=== PATIENT | female | born 1975 | race Caucasian/White ===

== ENCOUNTER 2016-08-09 17:36 | Emergency (ER) | payer OTHER, MEDICARE ==
[~2016-08-09 17:36] MED LIST: KLONOPIN0.5 M1 PO; SERTRALINE HCL50 MG PO; ZOLOFT25 M1 PO
[2016-08-09] MEDS ORDERED: OLANZAPINE5 M2 PO (17:47)
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
[2016-08-09 18:41] VITALS: BP 120/75
[2016-08-09 18:56] LABS: ABSOLUTE BASOPHIL COUNT 0 /CUMM (0.0-0.2); ABSOLUTE EOSINOPHIL COUNT 0.1 /CUMM (0.0-0.7); ABSOLUTE GRANULOCYTE CT 5.1 /CUMM (1.4-6.5); ABSOLUTE MONOCYTE COUNT 0.5 /CUMM (0.10-0.60); BASOPHIL % 0.3 % (0.0-2.0); EOSINOPHIL % 1.4 % (0-5); GRANULOCYTE % 65.3 % (42.2-75.2); HEMATOCRIT 35.9 % (37-47); MEAN CORPUSCULAR HGB 30.5 PG (27.0-31.0); MEAN CORPUSCULAR VOLUME 89.9 FL (81.0-99.0); MEAN PLATELET VOLUME 8.6 FL (7.4-10.4); PLATELET COUNT 292 /CUMM (130-400); RBC DISTRIBUTION WIDTH 13.6 % (11.5-14.5); RED BLOOD CELL CT 3.99 /CUMM (4.20-5.40); WHITE BLOOD CELL COUNT 7.9 /CUMM (4.8-10.8)
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
== END 2016-08-09 20:39 ==
LOC: ERH 17:36
PROVIDERS: Emergency Medicine
DX: F32.9 Major depressive disorder, single episode, unspecified (principal); F41.0 Panic disorder [episodic paroxysmal anxiety]
CPT/HCPCS: 80307; G0463; G0480

== ENCOUNTER 2016-08-13 16:40 | Emergency (ER) | payer OTHER, MEDICARE ==
[~2016-08-13 16:40] MED LIST changes: +OLANZAPINE5 M2 PO
--- NOTE | 2016-08-13 16:49 | ED PSYCHIATRIC COMPLAINT ---
History of Present Illness General Chief Complaint: Psychiatric Related Complaint Stated Complaint: +SI Source: patient, old records, EMS Exam Limitations: no limitations Allergies Coded Allergies: No Known Allergies (10/21/15) Reconcile Medications Clonazepam (Klonopin) 0.5 MG TABLET 1 TAB PO BID ANXIETY (Reported) Olanzapine 5 MG TABLET 1 TAB PO BID MENTAL HEALTH (Reported) Triage Nurses Notes Reviewed? yes Onset: Gradual Duration: week(s): (FEW), worse persistent since (2 DAYS) Timing: recent history Severity: severe Associated Symptoms: anxiety, suicidal ideation HPI: This is a 41-year-old female with history of anxiety who presents to the ER by EMS from the [facility] for chief complaint of anxiety attack. She reported that she was suicidal without a plan. History of previous visits to the ER for overwhelming anxiety. (KADEN JORDAN MD) Vital Signs & Intake/Output Vital Signs & Intake/Output Vital Signs Date Time Temp Pulse Resp B/P Pulse O2 O2 Flow FiO2 Ox Delivery Rate 08/138 98.2 90 16 120/64 98 Room Air 08/13 1712 Room Air 08/13 1654 78 18 111/66 98 Room Air Past History Travel History Traveled to [place] past 21 day No Medical History Any Pertinent Medical History? see below for history Neurological: NONE EENT: NONE Cardiovascular: NONE Respiratory: NONE Gastrointestinal: NONE Hepatic: NONE Renal: NONE Musculoskeletal: NONE Psychiatric: anxiety, depression, PARANOID OCD R/O benzodiazepine use disorder Endocrine: NONE Blood Disorders: NONE Cancer(s): NONE Surgical History Surgical History: non-contributory Psychosocial History Who do you live with Patient/Self What is your primary language Persian Family History Hx Contributory? No (KADEN JORDAN MD) Review of Systems Review of Systems Respiratory: Denies: cough, short of breath. Cardiovascular: Denies: chest pain, palpitations. Neurological/Psychological: Reports: depressed. Hematologic/Endocrine: Denies: bruising, bleeding, polyuria, polydipsia. Immunologic/Allergic: Denies: splenectomy. (KADEN JORDAN MD) Review of Systems Constitutional: Reports: no symptoms. EENTM: Reports: no symptoms. Respiratory: Reports: no symptoms. Cardiovascular: Reports: no symptoms. GI: Reports: no symptoms. Genitourinary: Reports: no symptoms. Musculoskeletal: Reports: no symptoms. Skin: Reports: no symptoms. Neurological/Psychological: Reports: see HPI, anxiety, confusion. Hematologic/Endocrine: Reports: no symptoms. Immunologic/Allergic: Reports: no symptoms. All Other Systems: Reviewed and Negative (LISSETTE WRIGHT MD) Physical Exam Physical Exam General Appearance: awake, anxious, cachetic, thin (KADEN JORDAN MD) Physical Exam General Appearance: well developed/nourished, mild distress Head: atraumatic Eyes: Bilateral: PERRL, EOMI. Ears, Nose, Throat: normal pharynx, normal ENT inspection, hearing grossly normal Neck: normal inspection, supple Respiratory: normal breath sounds Cardiovascular: regular rate/rhythm Gastrointestinal: soft, non-tender Extremities: normal range of motion Neurological/Psychiatric: no motor/sensory deficits, awake, agitated, alert, anxious, rabbet operator II-XII nml as tested Appearance/Memory/Insight: disheveled, impaired insight Behavoir/Eye Contact/Speech: cooperative, increased rate of speech Thoughts/Hallucinations: no apparent hallucination Skin: intact, normal color, warm/dry SAD PERSONS Done? patient not suicidal (LISSETTE WRIGHT MD) Progress Differential Diagnosis: ANXIETY, DEPRESSION, PTSD, BIPOLAR Hand-Off Endorsed To: LISSETTE WRIGHT MD Endorsed Time: 1900 Pending: consult (CRISIS) (KADEN JORDAN MD) Differential Diagnosis: drug intoxication, drug overdose, drug withdrawal, electrolyte abnormality Plan of Care: Orders Procedure Date/time Status Regular Diet 08/14 B Active Continuous Observation Monitor 08/13 164 Active URINE DRUGS OF ABUSE 08/13 1646 Complete URINE 08/13 1646 Complete THYROID STIMULATING HORMONE 08/13 164 Complete FREE T4 08/13 1646 Complete COMPREHENSIVE METABOLIC PANEL 08/13 164 Complete CBC WITHOUT DIFFERENTIAL 08/13 1646 Complete ED CRISIS PSYCH CONSULT 08/13 1647 Active Laboratory Tests 08/13/16 1826: Urine Opiates Screen < 100.00, Methadone Screen < 40, Barbiturate Screen < 60, Ur Phencyclidine Scrn < 6.00, Amphetamines Screen < 100, U Benzodiazepines Scrn > 800 H, Urine Cocaine Screen < 50, Urine Cannabis Screen < 5.00, Urine Test NEGATIVE 08/13/16 1659: Anion Gap 10, Estimated GFR > 60, BUN/Creatinine Ratio 21.7, Glucose 94, Calcium 9.4, Total Bilirubin 0.6, AST 18, ALT 29, Alkaline Phosphatase 55, Total Protein 7.2, Albumin 4.2, Globulin 3.0, Albumin/Globulin Ratio 1.4, TSH 1.330, Free T4 1.43, CBC w Diff NO MAN DIFF REQ, RBC 3.88 L, MCV 90.4, MCH 30.7, RDW 13.6, MPV 8.3, Gran % 47.8, Lymphocytes % 42.9, Monocytes % 7.6, Eosinophils % 1.0, Basophils % 0.7, Absolute Granulocytes 2.8, Absolute Lymphocytes 2.5, Absolute Monocytes 0.4, Absolute Eosinophils 0.1, Absolute Basophils 0, PUBS MCHC 34.0 Comments: Cleared by psychiatry for discharge (LISSETTE WRIGHT MD) Departure Departure Condition: Stable Referrals: PATIENT HAS NO PRIMARY CARE DR (PCP/Family) Departure Forms: Customer Survey General Discharge Information (KADEN JORDAN MD) Departure Time of Disposition: 1958 Disposition: HOME OR SELF CARE Clinical Impression Primary Impression: Anxiety about blushing Additional Instructions: Follow up with the recommendations of the psychiatric nursing aide (LISSETTE WRIGHT MD)
[2016-08-13 17:12] LABS: ABSOLUTE BASOPHIL COUNT 0 /CUMM (0.0-0.2); ABSOLUTE EOSINOPHIL COUNT 0.1 /CUMM (0.0-0.7); ABSOLUTE GRANULOCYTE CT 2.8 /CUMM (1.4-6.5); ABSOLUTE LYMPH COUNT 2.5 /CUMM (1.2-3.4); ABSOLUTE MONOCYTE COUNT 0.4 /CUMM (0.10-0.60); BASOPHIL % 0.7 % (0.0-2.0); GRANULOCYTE % 47.8 % (42.2-75.2); HEMATOCRIT 35.1 % (37-47); MEAN CORPUSCULAR HGB 30.7 PG (27.0-31.0); MEAN CORPUSCULAR VOLUME 90.4 FL (81.0-99.0); MEAN PLATELET VOLUME 8.3 FL (7.4-10.4); PLATELET COUNT 261 /CUMM (130-400); RBC DISTRIBUTION WIDTH 13.6 % (11.5-14.5); RED BLOOD CELL CT 3.88 /CUMM (4.20-5.40); WHITE BLOOD CELL COUNT 5.8 /CUMM (4.8-10.8)
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
--- NOTE | 2016-08-13 19:42 | ED PSY CRISIS COLLATERAL NOTE ---
Collateral Note Collateral Note Family/Inform/Arslan Contacts: Spoke to patients mother, Venecia ([phone]), who was tearful on the phone, was not aware that her daughter was in ED and had just called the police to look for her. Mother reports concern for patient stating that she wants her daughter to get help and does not think she is doing well. I also spoke with patients outpatient therapist, Dr. Giles Spann ([phone]), who reported that patient is "super anxious and super confused" she reports that patient does not report suicidal thoughts so she understands that patient most likely will not be admitted. She expresses concern that patient will keep returning to hospital due to increased anxiety and being unable to manage it on her own.
[2016-08-13 19:58] VITALS: BP 120/64
== END 2016-08-13 20:29 ==
LOC: ERH 16:40
PROVIDERS: Emergency Medicine
DX: F41.9 Anxiety disorder, unspecified (principal)
CPT/HCPCS: 80307; 81025; G0463

== ENCOUNTER 2016-08-15 12:31 | Inpatient (IN) | payer OTHER, MEDICARE ==
[~2016-08-15] VITALS: Ht 165.1 cm; Wt 50.3 kg
--- NOTE | 2016-08-15 12:41 | NUR ---
PT TO LAMBERT MOORE, SECURITY AT BEDSIDE FOR WANDING, SECURITY AND MST ASSISTING PT WITH CHANGING AND SECURING BELONGINGS. PT ALLOWED TO MAKE 1 PHONE CALL TO HER FATHER PRIOR TO WANDING, PT ADVISED THAT FATHER WILL NOT BE ABLE TO VISIT UNLESS PT IS COOPERATING WITH EVALUATION PROCESS. PT DENIES ANY PHYSICAL SYMPTOMS AT THIS TIME.
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
--- NOTE | 2016-08-15 13:08 | NUR ---
PT SCREAMING "I WANT TO ! I DON'T WANT TO , I WANT TO SCREAM! I WANT MY DAUGHTER!" PSYCHIATRIST AT BEDSIDE WITH PT.
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
[2016-08-15 14:03] LABS: ABSOLUTE BASOPHIL COUNT 0 /CUMM (0.0-0.2); ABSOLUTE EOSINOPHIL COUNT 0.1 /CUMM (0.0-0.7); ABSOLUTE GRANULOCYTE CT 2.9 /CUMM (1.4-6.5); ABSOLUTE LYMPH COUNT 1.8 /CUMM (1.2-3.4); ABSOLUTE MONOCYTE COUNT 0.4 /CUMM (0.10-0.60); BASOPHIL % 0.5 % (0.0-2.0); EOSINOPHIL % 1.8 % (0-5); GRANULOCYTE % 56.1 % (42.2-75.2); HEMATOCRIT 35.1 % (37-47); MEAN CORPUSCULAR HGB 30.5 PG (27.0-31.0); MEAN CORPUSCULAR HGB CONC 33.8 G/DL (33.0-37.0); MEAN CORPUSCULAR VOLUME 90.2 FL (81.0-99.0); MEAN PLATELET VOLUME 8.6 FL (7.4-10.4); PLATELET COUNT 279 /CUMM (130-400); RBC DISTRIBUTION WIDTH 13.5 % (11.5-14.5); RED BLOOD CELL CT 3.89 /CUMM (4.20-5.40); WHITE BLOOD CELL COUNT 5.3 /CUMM (4.8-10.8)
--- NOTE | 2016-08-15 14:07 | NUR ---
URINE TRIO SENT, FINGER FOOD TRAY ORDERED.
--- NOTE | 2016-08-15 14:17 | NUR ---
PT REQUESTING TO SEE STAFF STATING SHE NEEDS TO FILL OUT JOB APPLICATIONS AND DOES NOT KNOW HOW AND DOES NOT LIKE THE ANSWERS SHE IS GETTING FROM HER FATHER. PT WITH MULTIPLE QUESTIONS ABOUT HOW TO FILL OUT JOB APPLICATIONS AND HOW TO ANSWER QUESTIONS REGARDING "CIVIL INFRACTIONS." PT ADVISED THAT ED STAFF IS UNABLE TO ASSIST HER WITH THESE CONCERNS. FATHER SITTING CALMLY AT BEDSIDE. PT ABLE TO CALM DOWN WHEN TOLD HER FATHER WILL BE ASKED TO LEAVE IF SHE CONTS TO C/O CONFLICT BETWEEN THEM, STATED "I DON'T WANT MY DAD TO LEAVE" AND SITTING QUIETLY AWAITING LUNCH TRAY.
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
--- NOTE | 2016-08-15 14:58 | NUR ---
PCO: BED SEARCH.
--- NOTE | 2016-08-15 15:50 | NUR ---
Pt referral faxed to [facility].
--- NOTE | 2016-08-15 16:37 | NUR ---
PT OUT IN HALLWAY, SHOUTING AND PACING AROUND, REFUSING TO GO BACK INTO ROOM, REFUSING TO LOWER VOICE, STATING SHE WANTS "SOMEONE TO SIT IN HERE AND TALK TO ME ABOUT MY PROBLEMS" BUT REFUSING TO SIT STILL OR LOWER VOICE. FATHER REMAINS CALMLY AT BEDSIDE, PT REFUSING TO BE REDIRECTED BY STAFF OR FATHER. PT MEDICATED WITH THORAZINE/ATIVAN/BENADRYL, PT CONTS YELLING STATING "THAT'S JUST GONNA MAKE ME SLEEP, I NEED THERAPY FOR MY PROBLEMS, I DON'T LIKE IT HERE, I WANT MY DAD TO TAKE ME HOME." PT ADVISED THAT SHE CANNOT LEAVE THE HOSPITAL AND THAT STAFF WILL NOT SPEAK WITH HER WHILE SHE IS SCREAMING AND PACING AROUND. SITTERS AT BEDSIDE, FATHER ALSO AT BEDSIDE ATTEMPTING TO CALM PT DOWN.
--- NOTE | 2016-08-15 17:57 | NUR ---
PT NO LONGER SCREAMING OR RUNNING OUT OF ROOM, MEDICATIONS EFFECTIVE. CONTS TO ESCALATE EASILY. SITTERS PRESENT.
--- NOTE | 2016-08-15 19:59 | NUR ---
PT'S BP D/W DR JORDAN; PT'S HIGHEST BP SINCE ADMIT WAS 106/60 AND AT THAT TIME PT WAS MOVING AROUND AND VERY AGITATED, PT IS NOW MEDICATED, SHE IS AROUSABLE AND OTHER VITALS ARE STABLE. PER DR JORDAN NO TX NEEDED RIGHT NOW, WILL MONITOR BP CLOSELY MEDS WEAR OFF.
--- NOTE | 2016-08-15 20:31 | NUR ---
CALL RECIEVED FROM PT'S MOTHER ASKING FOR EDUCATION COUNSELOR TO CALL PT'S PSYCHIATRIST. PER MOTHER PSYCHIATRIST IS KRISTAL LOYA [phone]. CRISIS UNAVAILABLE AT THIS TIME, MOTHER INFORMED THAT SHE MAY NOT RECIEVE A CALL BACK THIS EVENING. MOTHER IS UNSURE WHY PSYCHIATRIST WISHES TO SPEAK WITH A CLINICIAN; EXPLAINED TO MOTHER THAT MINIMAL CHANGES ARE LIKELY TO OCCUR WITH PT'S PSYCHIATRIC POC UNTIL PT IS TRANSFERRED TO AN INPATIENT FACILITY.
--- NOTE | 2016-08-15 20:50 | ED PSY CRISIS COLLATERAL NOTE ---
Collateral Note Collateral Note Family/Inform/Arslan Contacts: Phone contact with Dr. Giles Cagle . She reports she sees the pt 2x weekly and lately the pt presented with symptoms of disorganized thoughts, suicidal thoughts making the following statement "I want to ". Pt is also saying that she is afraid of being alone because of hearing voices. Although, the pt is reporting she is hearing voices, Dr. Cagle does not believe that she is experiencing psychotic symptoms. Dr. Cagle states she believes that it is the pt's imagination. Also, Dr. Cagle is in contact with the pt's parents who now has custody of her 7 year old daughter and the parent report that friends and family are reporting that the pt has been emailing and texting people that she wants to . Dr. Cagle has diagnosed the pt with Borderline Personality Disorder.
--- NOTE | 2016-08-15 22:21 | NUR ---
PT REMAINS SLEEPING (MEDICATED) ON BED, CRISIS IN AND OUT OF ROOM INTERMITTANTLY, PT TO BE HELD OVER FOR ONGOING BED SEARCH. PER CRISIS, [facility] WAS WILLING TO ACCEPT PT BUT PT'S MOTHER REFUSED, MOTHER WANTS PT AT [facility], [facility] HAS NO BEDS. MOTHER CALLED AFTER SPEAKING WITH CONSOLE ASSEMBLER STATING SHE FORGOT TO TELL HER SOME THINGS, MADE AWARE CRISIS HAD LEFT FOR THE DAY IT WAS AFTER 10PM, SUGGESTED SHE CALL BACK TOMORROW MORNING.
--- NOTE | 2016-08-16 01:49 | NUR ---
PT SLEEPING AT THIS TIME, SITTER AT BEDSIDE, NO DISTRESS NOTED
--- NOTE | 2016-08-16 03:53 | NUR ---
PT AWAKE AND ANXIOUS, PT REDIRECTED BACK TO ROOM, SITTER AT BEDSIDE FOR SAFETY, NO DISTRESS NOTED.
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
--- NOTE | 2016-08-16 06:40 | NUR ---
PT SLEEPING, SITTER AT BEDSIDE FOR SAFETY, NAD
--- NOTE | 2016-08-16 08:00 | NUR ---
PT WITH INCREASING ANXIETY, WALKING BACK AND FORTH IN HALLWAY OUTSIDE OF . REDIRECTED BACK TO ROOM WITH DIFFICULTY. REQUESTED MEDS FROM DR WRIGHT MEDICATED WITH ATIVAN AND BENADRYL, AWAITING THORAZINE AND ZYPREXA FROM PHARMACY.
--- NOTE | 2016-08-16 08:34 | NUR ---
PT MEDICATED WITH OLANZAPINE AND THORAZINE PER ORDERS DR WRIGHT. PT REPEATEDLY NEEDING TO BE REDIRECTED BACK TO HER ROOM. SITTER REMAINS AT DOOR.
--- NOTE | 2016-08-16 09:30 | NUR ---
PT REQUESTING TO USE PHONE, ADVISED BY SECURITY AND SITTER STAFF THAT SHE COULD NOT USE THE PHONE UNTIL SHE COULD BE MORE COMPLIANT WITH REMAINING IN HER ROOM AND THEN PHONE PRIVILEDGES WOULD BE RETURNED.
--- NOTE | 2016-08-16 10:15 | NUR ---
PT HAS BEEN MORE COOPERATIVE AND REMAINS IN ROOM AT THIS TIME
--- NOTE | 2016-08-16 11:56 | NUR ---
PT AWAKE LYING ON BED WITHOUT TV ON. PT COMPLIANT WITH VITALS. PT ASKING ABOUT GROUP HOMES IN THE AREA AND SAYING THAT SHE "NEEDS MORE SUPPORT". PT CONCERNED ABOUT HER LICENSE.
--- NOTE | 2016-08-16 13:45 | NUR ---
PT AMBULATORY AT DOOR TO ROOM 15, FATHER AT BEDSIDE. PT'S MOTHER IS MEETING WITH CRISIS AT THIS TIME. PT REQUESTING THAT PAPERWORK BE SENT HOME WITH PARENTS AND SAID SHE WAS SUPPOSED TO BE IN THE MEETING WITH HER MOTHER, BUT THAT THE SW DOES NOT KNOW THIS. PT ANXIOUS AND WAS REDIRECTED TO STAY IN HER ROOM.
--- NOTE | 2016-08-16 15:37 | NUR ---
PT MEDICATED WITH ATIVAN 2MG PO, BENADRYL 50MG PO, THORAZINE 25MG PO, AND ZYPREXA 5MG PO.
--- NOTE | 2016-08-16 17:19 | NUR ---
PT ASLEEP AT THIS TIME. NO APPARENT DISTRESS. RESPIRATIONS EQUAL AND UNLABORED.
--- NOTE | 2016-08-16 19:11 | NUR ---
PT LYING IN BED ATTEMPTING TO SLEEP. SITTERS PRESENT
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
--- NOTE | 2016-08-16 21:08 | NUR ---
PT ASLEEP AT THIS TIME AND IN NO APPARENT DISTRESS. RESPIRATIONS EQUAL AND UNLABORED. SITTERS PRESENT FOR SAFETY
--- NOTE | 2016-08-16 22:12 | NUR ---
PT REFUSING MEDICATION AT THIS TIME, STATES "I TAKE THEM LATER WHEN I'M GOING TO SLEEP." VSS. WILL CTM.
--- NOTE | 2016-08-16 23:34 | NUR ---
PT MEDICATED WITH NIGHTIME ZYPREXA AND KLONOPIN PER ORDER (SEE MAR).PT CALM AND COOPERATIVE. DENIES AND COMPLAINTS.
--- NOTE | 2016-08-17 01:27 | NUR ---
PT SLEEPING ON BED IN ROOM. NO APPARENT DISTRESS NOTED. SITTER PRESENT
--- NOTE | 2016-08-17 03:35 | NUR ---
ASSUMED CARE , PT NOTED TO BE SLEEPING AT THIS TIME, REGULAR RESP RATE NOTED
--- NOTE | 2016-08-17 05:24 | NUR ---
PT NOTED TO BE SLEEPING AT THIS TIME, REGULAR RESP RATE NOTED AND SITTER REMAINS
--- NOTE | 2016-08-17 06:14 | NUR ---
PT CALM AND COPERATIVE AT THIS TIME AWAKE FOR VITAL, OFFERS NO COMPLAINTS. SITTER REMAINS
--- NOTE | 2016-08-17 06:20 | NUR ---
PT OUT OF ROOM AT THIS TIME AND SAT ON FLOOR NEAR ROOM 14. PT CALM /COPERATIVE QUESTIONING STAFF ABOUT IF THERE IS A BED YET. PT AWARE CRISIS WILL BE IN AROUND 0800 AND THAT SHE CAN TALK TO THEM. PT ALSO REQUESTING [facility] BUS SCHEDULE. STAFF MADE PT AWARE THAT SHE SHOULD ADRESS CRISIS WITH ALL OF HER QUESTIONS. PT AMBULATED BACK TO ROOM WITHOUT ANY PROBLEMS
--- NOTE | 2016-08-17 08:12 | NUR ---
ASSUMED CARE OF THIS PATIENT, REPORT RECEIVED FROM CHINO ROCHA PT AMBULATORY IN ROOM AND DOORWAY TO ROOM CONTINUES TO HAVE ANXIETY AND EXPRESS SAME FEARS SHE HAS BEEN BUT APPEARS LESS ANXIOUS TO THIS RN THEN YESTERDAY. SITTER REMAINS AT DOOR WILL CONTINUE TO MONITOR.
--- NOTE | 2016-08-17 08:57 | NUR ---
PT INCREASING IN ANXIETY MEDICATED WITH AM MEDS AT THIS TIME
--- NOTE | 2016-08-17 10:30 | NUR ---
PT SLEEPING ON BED AT THIS TIME, REGULAR RESPIRATIONS NOTED SITTER REMAINS AT DOOR
--- NOTE | 2016-08-17 11:49 | NUR ---
PT ESCALATING AND ANXIETY LEVEL INCREASING. REPEATEDLY NEEDING TO BE RE-DIRECTED BACK TO HER ROOM. MEDICATED WITH PO ATIVAN PER ORDERS DR EATON CARE TRANSFERRED OVER TO RN JUAN CARLOS POWER AND TATIANNA. SITTER REMAINS AT DOOR.
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
--- NOTE | 2016-08-17 14:57 | SOCIAL WORKER SOCIAL HX PSYCH ---
Social History Basic Assessment Insurance Authorization: Insurance #1: Insurance name: MEDICARE A Phone number: Policy number: [id number] Group number: Authorization number: Curr Source of Income/Entitlements: Medicare, SSDI Primary Care Physician: Patient's PCP: PATIENT HAS NO PRIMARY CARE DR PCP's Phone Number: Present Problem: Pt is a 41 yo female biba to [place] ED this morning after being pulled over by the police for talking on her cell phone and driving erratically. Pt has a hx of severe anxiety and debilitating panic attacks. This is pt's 3x in [place] ED this week. During triage pt in distress and stating she wants to kill herself. Pt has been inpatient 3x in 2016 including admission to [facility] in October 2015. Patient reports that she is prescribed Klonopin 0.5mg 2x day and Zyprexa 2.5mg 2x day by Dr. Olivera out of [place], [place]. Patient is in outpatient individual therapy with Dr. Giles Colon (Neuropsychologist) and recently started seeing a therapist in [place] (can not recall name) for DBT. Patient resides alone currently in [place], [place]. She lost custody of her 7 year old daughter this past year and her parents are guardian to her now. Patient reports that she attempted to kidnap her daughter on [place] from her parents and was planning to go to [place] where her daughters father resides. Patient did not go through with the trip and returned her daughter home to her parents home. Pt is reporting she can no longer care for herself or live independently. She reports beginning discussion with her therapist yesterday about placement in [facility] nursing home program. Pt presenting as anxious (though lessened following medication of ativan and zyprexa), fearful, though alert and OX3. Pt will be a voluntary admission. Pt re-evaluated on evening shift. [facility] was able to accept pt for transfer. Pt was resting in bed. When awoken and told about [facility], pt became anxious and began to panic expressing that she is scared to be that far away from home. She asked this clinician to call her parents to discuss. This clinician called Pt's father Troy and both parents were on speaker phone. They stated that [facility] was too far for them to participate in pt's care and asked she not transfer there. Explained to them that pt will likely be in the ED all weekend if this opportunity is not accepted. They stated that they would prefer that. This clinician called [facility] back and informed then and they stated they would have to decline pt since the family was not able to participate in her tx. When this clinician came back out to explain this to pt, she was out side of her room in the vora on the floor curled up in a ball rocking back and fourth. Provided comfort and reassurance and explained the current plan that the psychiatrist and crisis will re-evaluate her tomorrow and she will spend the night in the ED tonight. AMY FRANCISCO [employer] [employer]> 08/15/[address] Giles Cagle . She reports she sees the pt 2x weekly and lately the pt presented with symptoms of disorganized thoughts, suicidal thoughts making the following statement "I want to ". Pt is also saying that she is afraid of being alone because of hearing voices. Although, the pt is reporting she is hearing voices, Dr. Cagle does not believe that she is experiencing psychotic symptoms. Dr. Cagle states she believes that it is the pt's imagination. Also, Dr. Cagle is in contact with the pt's parents who now has custody of her 7 year old daughter and the parent report that friends and family are reporting that the pt has been emailing and texting people that she wants to . Dr. Cagle has diagnosed the pt with Borderline Personality Disorder. VALERIA WAYNEE [employer]> 08/15/16 Pt re-evaluated on evening shift. [facility] was able to accept pt for transfer. Pt was resting in bed. When awoken and told about [facility], pt became anxious and began to panic expressing that she is scared to be that far away from home. She asked this clinician to call her parents to discuss. This clinician called Pt's father Troy and both parents were on speaker phone. They stated that [facility] was too far for them to participate in pt's care and asked she not transfer there. Explained to them that pt will likely be in the ED all weekend if this opportunity is not accepted. They stated that they would prefer that. This clinician called [facility] back and informed then and they stated they would have to decline pt since the family was not able to participate in her tx. When this clinician came back out to explain this to pt, she was out side of her room in the vora on the floor curled up in a ball rocking back and fourth. Provided comfort and reassurance and explained the current plan that the psychiatrist and crisis will re-evaluate her tomorrow and she will spend the night in the ED tonight. ROBYN GARNERMADISYN [facility]> 08/15/16 Pt re-evaluated by Crisis this morning after having been held over in the emergency room last night. Pt was alert and oriented times three, but extremely anxious, hyperactive and tearful. Pt reported that she is still having suicidal thoughts and would like to be admitted. Crisis also spoke with Pt's mother ( Venecia) who agreed that pt. needs hospitalization, with a preference for [facility]. Pt. was also seen by Dr. Wing who agreed with the plan for hospitalization. Bed search conducted. Pt's info faxed to [facility] who declined the transfer. Pt's info also sent to [facility] who have no beds but will review pt. in the morning. Pt had also been declined at [facility] earlier this AM. No other hospitals have beds, therefore pt. will be held over again. JUSTINA SELF [facility]> 08/16/16 Pt aware of disposition this shift, pt begins to get flooded and asking for detail and is concerned about things that have already been discussed, i.e. the plan for her to remain in ER. Pt is able to calm down, and is cooperative. Pt was worried about her Mother forgetting abotu her cat outside. Pt likes to talk , and can easily become anxious, and loud. By the end of the shift she was sleeping and calm. BRAYAN SUPRIYA [facility]> 08/16/16 41 y/o woman w/ past psychiatric hx, anxiety, depressive, psychotic sx and significant personality d/o traits, brought in erratic, disorganized, panicked. She stated that she was driving erratically and that her license was taken away from her. Met her briefly on 08/15, she was hysterical, hitting her head with her fist, labile and childlike. she had been to this ER twice earlier this week with similar sx which resolved, and discharged. Today she remained hysterical, disorganized and labile. She stated that she needed a nursing home to live in, and was preoccupied with this such that she needed frequent redirection to get to another topic. She stated that she sleeps normally, that when she is stressed she does not eat (she is thin/cachectic - denied any past problems w/ eating or any diagnosed eating disorder, but would ask family for collateral). Stated that she wants to b/c she is panicked (yelling I want to when she was in more distress, then yelling that she doesn't want to she just wants to get better ) and that she hears voices that tell her to kil herself - of her mom/dad. Uncertain whether these voices are true psychosis, suspect more of a decompensated personality d/o. She was childlike, asking for her daddy, needing frequent reassurance. She stated that she has been sick for 20 years and had been psychiatrically admitted about 4x ([facility] - reviewed her d/c summary from october 2015, [facility] in [place]). She stated that she pullls her hair out and that she cuts herself in her head and her arms with her nails. Stated that she has tapping rituals and other OCD rituals. Past med trials - effexor, depakote, risperdal, lithium, prozac - stated that nothing helps her. social: lives alone now, HS graduate and has BSc from [employer]; worked waitressing and other jobs. Has a 7 y/o daughter who is in custody of her parents, she had attempted to take daughter while in the parents custody earlier last year. No significant drug use hx per her. Spoke w/ her father who was concerned that she is not getting better, her behavior is more erratic. Spoke w/ her psychiatrist Dr. Giles Bennett who rec admission to [facility] b/c she had been there before and therapist was there; rec to increase her olanzapine. She had received oral thorazine/ativan/benadryl for increased agitation after her doses of olanzapine did not help. labs, crisis notes reviewed. MSE: cachectic woman, no movement d.o, childlike, panicked, anxious. Fair eye contact. Psychomotor agitation present. Mood depressed, affect labile and erratic. Thought process perseverative on her family and on getting to a nursing home; tangential at times and disorganized. Content positive for screaming that she wants to . Stated that she has hallucinations however does not appear internally preoccupied. No gross delusions elicited. Insight and judgment poor. Cognition appears at least average but impaired by her mental status. Impression: 41 y/o woman w/ severe character pathology, anxiety sx, decompensated to a labile, disorganized, psychotic and suicidal state. Needs inpatient admission at this time. Continue titrating up olanzapine 5mg tid and clonazepam 1mg bid; Family and psychiatrist all advocating for bed at [facility] for continuity of care. Thorazine 100mg/ativan 2mg/benadryl 50mg oral appeared helpful for her earlier in the day to manage her agitation. RANDA WING MD> 08/16/16 Crisis re-evaluated pt this morning. Pt pacing around in a hysterical state screaming "I just want to kill myself." Pt expresses feeling of hopelessness and helplessness stating that she can not care for herself. Pt is fixated on going to a nursing home. Explained to her that a nursing home referral is not a realistic expectation and told her the current goal is for her to go to inpt psych tx. Crisis spoke to Pt's mother Nika who expressed preference for pt to go inpt at [facility]. Crisis spoke to Lobito at [facility] who informed that there is no way they can accept outside referrals as they have 4 days to a week wait for people in their own ED. Continue plan for inpt psych bed search vs CPS admit depending on bed availability. ROBYN PLUNKETT [employer]> 08/17/16 Primary Language? Czech Language(s) Spoken At Home: Czech Living Situation Feel Safe Where You Are Living No Feel Safe in Relationships? Yes Comments: Pt reports being unable to care for herself and wants to live in a nursing home Allergies - Coded Allergies: No Known Allergies (10/21/15) Current Medications - Scheduled Medications Clonazepam (Klonopin) 0.5 MG TABLET 1 TAB PO BID ANXIETY (Reported) Entered as Reported by AKBAR SWENSON on 10/21/15 1422 Last Taken: Unknown Dose at an unknown date and time Olanzapine 5 MG TABLET 1 TAB PO BID MENTAL HEALTH #60 (Reported) Entered as Reported by ANA CALERO on 08/09/161746 Last Taken: Unknown Dose at an unknown date and time Past History Past Medical History Neurological: NONE EENT: NONE Cardiovascular: NONE Respiratory: NONE Gastrointestinal: NONE Hepatic: NONE Renal: NONE Musculoskeletal: NONE Psychiatric: anxiety, depression, PARANOID OCD R/O benzodiazepine use disorder Endocrine: NONE Blood Disorders: NONE Cancer(s): NONE Past Surgical History Surgical History: non-contributory /Family History Place/Country of Origin: [place], [place] Childhood Family Constellation: Parents and sister Primary Childhood Caretakers: father, mother Family Life During Childhood: difficuly, unsettling, anxious. DCF Involvement? No Mother's Age (Current/): 70 Relationship w/Mother: she is controlling and Im upset she allowed my Father to be angry towards me as a child and adult Father's Age (Current/): 79 Relationship w/Father: Better since childhood, but he has an anger issue Any Sibling(s)? Yes Sibling's Gender(s)/Age(s): female Sibling 1: Relationship w/Sibling(s): she sides with aprents, and their relationship isnt positive. Relationship w/Friends: I dont have any friends here Family Psych/Sub Abuse/Add Hx: Parent's have anxiety Number of Pregnancies: 2 Number of Miscarriages: 0 Number of Abortions: 1 Abuse/Trauma History Trauma History/Current Trauma: PTSD symptoms (related to OCD thougths) Victim or Perpretator? victim Patient's Age at Time of Trauma: 14 History of Trauma/Abuse Treatment? No Abuse/Trauma Treatment: denies Legal History Have you ever been arrested No Number of Arrests: 0 Hx of Juvenile Legal Charges? No Hx of Adult Legal Charges? No Civil Proceedings: denies Domestic Relations Court: denies just won a court/custody case to leave state and return to [place] Child Protective Serv Involvmnt denies Psychosocial History Primary Support System: father, mother, daughters father Strengths/Capabilities: Trying to care for her daughter/functional when stable on medications. In treatment Physical Limitations (Interventions): None Last Physical: jun 2015 History of Blackouts? No ADL Limitations: when anxiety and ocd are not managed pt has hard time functioning and meeting ADL [place]/Social/Peer Relations denies having any Meaningful Activities: I used to but not anymore Childhood Christianity: denies Current Pentecostal Affiliation: no jain stated Is Spirituality Important to You? no Cultural/Ethnic Issues: denies Are There Developmental Issues? No Milestones Achieved: fine motor, gross motor Psychiatric Treatment History Psych Treatment Inpatient Treatment Yes Outpatient Treatment Yes Location of Treatment [facility] 2016. Outpatient current Reason for Treatment Anxiety/Panic Attacks Dates of Treatment various Response to Treatment Pt continues to have a severe debilitating panic attacks. 3X [place] ED this week. Diagnosis: Panic OCD Anxiety Depression Borderline Personality Risk Factors: high anxiety/distress, history of suicide atmpts, SA/MH hospitalized, poor impulse control Substance Use/Abuse History Drug Use/Abuse Substance Used/Abused Benzodiazepines Symptoms of Use: pt prescribed benzo Substance Abuse Treatment Substance Abuse Treatment Inpatient Treatment No Outpatient Treatment No Education History Highest Level of Education: bachelor's degree Highest Grade Completed: theatre degree 4 years college Number of College Years: 4 College Degree/Major: theatre and environmental science Preferred Learning Style: visual, auditory, experiential HX of Learning Difficulties: Anxiety, tapping and ocd symptoms Barriers to Learning: None reported Special Communication Needs: None reported Employment History No. of Jobs in Last 5 Years: 2 Attendance: Absenteeism Performance: Below Average History Have You Been in The ? No Current Mental Status Problem List: 1. Depression 2. Anxiety 3. Major depression 4. Panic disorder 5. Anxiety about blushing 6. Generalized anxiety disorder Mental Status Orientation: Person, Place, Situation Affect: Anxious Speech: Perseveration, Pressured Neuro-vegetative: Appetite Decreased, Concentration Poor, Helpless, Sleep Disturbance Appearance Appearance- Dress/Hygiene: Pt is in hospital scrubs lying in bed wrapped in heavy blanket. Pt hair long and frizzy. Pt is extremely thin. Behaviors Thought Process: Disorganized, Flight of Ideas, Irrational Thought Content: WNL Memory: WNL Insight: Fair SI/HI Risk Assessment Past Suicidal Ideation/Attempts Yes Current Suicidal Ideation/Att Yes Past Homicidal Ideation/Att: No Current Homicidal Ideation/Attempts No Degree of Intent: Thoughts/No Intent Danger To: Self Gravely Disabled: Poor Impulse Control, Poor Judgment Risk Factors: High Anxiety/Distress, SA/MH Hospitalization(s), Poor impulse control Lethality Ratin - Conclusion and Recommendations for treatment - and discharge planning Summary: Pt is a 41 yo female biba to [place] ED this morning after being pulled over by the police for talking on her cell phone and driving erratically. Pt has a hx of severe anxiety and debilitating panic attacks. This is pt's 3x in [place] ED this week. During triage pt in distress and stating she wants to kill herself. Pt has been inpatient 3x in 2016 including admission to [facility] in October 2015. Patient reports that she is prescribed Klonopin 0.5mg 2x day and Zyprexa 2.5mg 2x day by Dr. Olivera out of [place], [place]. Patient is in outpatient individual therapy with Dr. Giles Colon (Neuropsychologist) and recently started seeing a therapist in [place] (can not recall name) for DBT. Patient resides alone currently in [place], [place]. She lost custody of her 7 year old daughter this past year and her parents are guardian to her now. Patient reports that she attempted to kidnap her daughter on [place] from her parents and was planning to go to [place] where her daughters father resides. Patient did not go through with the trip and returned her daughter home to her parents home. Pt is reporting she can no longer care for herself or live independently. She reports beginning discussion with her therapist yesterday about placement in [facility] nursing home program. Pt presenting as anxious (though lessened following medication of ativan and zyprexa), fearful, though alert and OX3. Pt will be a voluntary admission. Pt re-evaluated on evening shift. [facility] was able to accept pt for transfer. Pt was resting in bed. When awoken and told about [facility], pt became anxious and began to panic expressing that she is scared to be that far away from home. She asked this clinician to call her parents to discuss. This clinician called Pt's father Troy and both parents were on speaker phone. They stated that [facility] was too far for them to participate in pt's care and asked she not transfer there. Explained to them that pt will likely be in the ED all weekend if this opportunity is not accepted. They stated that they would prefer that. This clinician called [facility] back and informed then and they stated they would have to decline pt since the family was not able to participate in her tx. When this clinician came back out to explain this to pt, she was out side of her room in the vora on the floor curled up in a ball rocking back and fourth. Provided comfort and reassurance and explained the current plan that the psychiatrist and crisis will re-evaluate her tomorrow and she will spend the night in the ED tonight. AMY FRANCISCO [employer]> 08/15/[address] Giles Cagle . She reports she sees the pt 2x weekly and lately the pt presented with symptoms of disorganized thoughts, suicidal thoughts making the following statement "I want to ". Pt is also saying that she is afraid of being alone because of hearing voices. Although, the pt is reporting she is hearing voices, Dr. Cagle does not believe that she is experiencing psychotic symptoms. Dr. Cagle states she believes that it is the pt's imagination. Also, Dr. Cagle is in contact with the pt's parents who now has custody of her 7 year old daughter and the parent report that friends and family are reporting that the pt has been emailing and texting people that she wants to . Dr. Cagle has diagnosed the pt with Borderline Personality Disorder. VALERIA LI [facility]> 08/15/16 Pt re-evaluated on evening shift. [facility] was able to accept pt for transfer. Pt was resting in bed. When awoken and told about [facility], pt became anxious and began to panic expressing that she is scared to be that far away from home. She asked this clinician to call her parents to discuss. This clinician called Pt's father Troy and both parents were on speaker phone. They stated that [facility] was too far for them to participate in pt's care and asked she not transfer there. Explained to them that pt will likely be in the ED all weekend if this opportunity is not accepted. They stated that they would prefer that. This clinician called [facility] back and informed then and they stated they would have to decline pt since the family was not able to participate in her tx. When this clinician came back out to explain this to pt, she was out side of her room in the vora on the floor curled up in a ball rocking back and fourth. Provided comfort and reassurance and explained the current plan that the psychiatrist and crisis will re-evaluate her tomorrow and she will spend the night in the ED tonight. ROBYN PLUNKETT [facility]> 08/15/16 Pt re-evaluated by Crisis this morning after having been held over in the emergency room last night. Pt was alert and oriented times three, but extremely anxious, hyperactive and tearful. Pt reported that she is still having suicidal thoughts and would like to be admitted. Crisis also spoke with Pt's mother ( Venecia) who agreed that pt. needs hospitalization, with a preference for [facility]. Pt. was also seen by Dr. Wing who agreed with the plan for hospitalization. Bed search conducted. Pt's info faxed to [facility] who declined the transfer. Pt's info also sent to [facility] who have no beds but will review pt. in the morning. Pt had also been declined at [facility] earlier this AM. No other hospitals have beds, therefore pt. will be held over again. JUSTINA SELF [facility]> 08/16/16 Pt aware of disposition this shift, pt begins to get flooded and asking for detail and is concerned about things that have already been discussed, i.e. the plan for her to remain in ER. Pt is able to calm down, and is cooperative. Pt was worried about her Mother forgetting abotu her cat outside. Pt likes to talk , and can easily become anxious, and loud. By the end of the shift she was sleeping and calm. BRAYAN SUPRIYA [facility]> 08/16/16 41 y/o woman w/ past psychiatric hx, anxiety, depressive, psychotic sx and significant personality d/o traits, brought in erratic, disorganized, panicked. She stated that she was driving erratically and that her license was taken away from her. Met her briefly on 08/15, she was hysterical, hitting her head with her fist, labile and childlike. she had been to this ER twice earlier this week with similar sx which resolved, and discharged. Today she remained hysterical, disorganized and labile. She stated that she needed a nursing home to live in, and was preoccupied with this such that she needed frequent redirection to get to another topic. She stated that she sleeps normally, that when she is stressed she does not eat (she is thin/cachectic - denied any past problems w/ eating or any diagnosed eating disorder, but would ask family for collateral). Stated that she wants to b/c she is panicked (yelling I want to when she was in more distress, then yelling that she doesn't want to she just wants to get better ) and that she hears voices that tell her to kil herself - of her mom/dad. Uncertain whether these voices are true psychosis, suspect more of a decompensated personality d/o. She was childlike, asking for her daddy, needing frequent reassurance. She stated that she has been sick for 20 years and had been psychiatrically admitted about 4x (shayne cantu - reviewed her d/c summary from october 2015, [facility] and [facility] in [place]). She stated that she pullls her hair out and that she cuts herself in her head and her arms with her nails. Stated that she has tapping rituals and other OCD rituals. Past med trials - effexor, depakote, risperdal, lithium, prozac - stated that nothing helps her. social: lives alone now, HS graduate and has BSc from [employer]; worked waitressing and other jobs. Has a 7 y/o daughter who is in custody of her parents, she had attempted to take daughter while in the parents custody earlier last year. No significant drug use hx per her. Spoke w/ her father who was concerned that she is not getting better, her behavior is more erratic. Spoke w/ her psychiatrist Dr. Giles Bennett who rec admission to [facility] b/c she had been there before and therapist was there; rec to increase her olanzapine. She had received oral thorazine/ativan/benadryl for increased agitation after her doses of olanzapine did not help. labs, crisis notes reviewed. MSE: cachectic woman, no movement d.o, childlike, panicked, anxious. Fair eye contact. Psychomotor agitation present. Mood depressed, affect labile and erratic. Thought process perseverative on her family and on getting to a nursing home; tangential at times and disorganized. Content positive for screaming that she wants to . Stated that she has hallucinations however does not appear internally preoccupied. No gross delusions elicited. Insight and judgment poor. Cognition appears at least average but impaired by her mental status. Impression: 41 y/o woman w/ severe character pathology, anxiety sx, decompensated to a labile, disorganized, psychotic and suicidal state. Needs inpatient admission at this time. Continue titrating up olanzapine 5mg tid and clonazepam 1mg bid; Family and psychiatrist all advocating for bed at [facility] for continuity of care. Thorazine 100mg/ativan 2mg/benadryl 50mg oral appeared helpful for her earlier in the day to manage her agitation. RANDA WIGN MD> 08/16/16 Crisis re-evaluated pt this morning. Pt pacing around in a hysterical state screaming "I just want to kill myself." Pt expresses feeling of hopelessness and helplessness stating that she can not care for herself. Pt is fixated on going to a nursing home. Explained to her that a nursing home referral is not a realistic expectation and told her the current goal is for her to go to inpt psych tx. Crisis spoke to Pt's mother Nika who expressed preference for pt to go inpt at [facility]. Crisis spoke to Lobito at [facility] who informed that there is no way they can accept outside referrals as they have 4 days to a week wait for people in their own ED. Continue plan for inpt psych bed search vs CPS admit depending on bed availability. ROBYN PLUNKETT LCSW> 08/17/16
--- NOTE | 2016-08-17 15:37 | NUR ---
REPORT GIVEN TO DOMINGO Moralez PT TO BE TRANSPORTED TO [facility]PS.
--- NOTE | 2016-08-17 16:05 | NUR ---
PT TRANSPORTED TO [facility]PS WITH DISTRIBUTION AND WATERSHED COORDINATOR. 1 BAG FROM [facility] AND 1 BAG OF BELONGINGS TRANSPORTED WITH PT.
--- NOTE | 2016-08-17 17:51 | NUR ---
ADMITTED ON VOLUNTARY FOR PANIC D/O, +SI, no plan. very dramatic, whining voice. states she is fearful of being alone. Has daughter who is with her parents and she has supervised visits. Reports AH/VH/TH, voices sound like her Mom and she decribes tactile as someone scratching her legs Passive SI.Mood is stable, labile affect. Needs frequent redirection,
[2016-08-17 19:44] VITALS: BP 105/67
--- NOTE | 2016-08-18 07:02 | NUR ---
PATIENT SLEPT ALL NIGHT.
[2016-08-18 07:53] VITALS: BP 104/56
--- NOTE | 2016-08-18 09:34 | CPS MD/APRN INITIAL ASSE PSYCH ---
Psychiatric Admission Apprentice Pattern Maker's Note Reviewed: Yes Patient Seen and Examined: Yes Identifying Information: Pt is a 41 y.o thin female with black hair. Chief Complaint: "I can't be independent. I need a assisted." Reaction to Hospitalization: Extremely anxious, hyperactive and tearful, but cooperative and anxious to recieve help. History of Present Illness Onset of Illness: Pt with a hx of severe anxiety and debilitating panic attacks was pulled over by the police for talking on her cell phone and driving erratically. BIBA, distressed and suicide ideation. Circumstances Leading to Admission: Patient experiencing disorganized, suicidal thoughts. Making the following statement "I want to ". Pt is also saying that she is afraid of being alone because of hearing voices telling her "she is not good, doesn't deserve to live and she should kill herself". Problem(s) Justifying Need for Admission: Suicide ideation with command auditory hallucinations, hysterical, disorganized thinking, labile. Other HPI: Denies Past Psychiatric History Past Diagnosis(es)- if any: Major Depressive Disorder recurrent, severe with anxiety/agitation; Borderline Personality Disorder; social phobia; OCD, PTSD. Past Precipitating Factors- if any: Relocating from [place] to [place]. Increased frequency and intensity of her "panic attacks" in October 2015. Another recent stressor is she recently lost a "year-long" custody dispute for her 7-year-old daughter to patient's parents States she doesn't see her family as much as she wants to. - Include inpatient and outpatient treatment Treatment History: Pt sees Dr. Olivera (Psychiatry) out of [place], [place]. Pt is in outpatient individual therapy with Dr. Giles Colon ( Neuropsychologist) and recently started seeing a therapist in [place] (can not recall name) for DBT. CPS admission 10/21/15-10/29/15 for Major Depressive Disorder recurrent; severe with anxiety/agitation Has been inpatient at [facility], in 2003 and at [facility] in [facility], (with Dr. Priest) in 06/2015 Past med trials - effexor, depakote, risperdal, lithium, prozac - stated that nothing really helps her. Although states found mild relief with lithium when she was on it for a short time. History of Suicide Attempts or Gestures Using nails to scratch herself in the scalp. Substance Abuse History: Cannibis 4 years ago, currently denies Allergies: Coded Allergies: No Known Allergies (10/21/15) Home Med List: Klonopin 0.5mg 2x day Zyprexa 2.5mg 2x day - Include any medical condition(s) that may - impact the patient's recovery/remission Past Medical History: denies Past History Medical History Neurological: NONE EENT: NONE Cardiovascular: NONE Respiratory: NONE Gastrointestinal: NONE Hepatic: NONE Renal: NONE Musculoskeletal: NONE Psychiatric: anxiety, depression, PARANOID OCD R/O benzodiazepine use disorder Endocrine: NONE Blood Disorders: NONE Cancer(s): NONE JANITOR AND CLEANER/Reproductive: NONE History of MRSA: No History of VRE: No History of CDIFF: No Isolation History: Standard Surgical History Surgical History: none Psychiatric Family/Social Hx Family History Psychiatric Illness: Mom has anxiety, personality disorder. Dad has anger problems. Substance Use: Denies Suicides: Paternal great-gradfather Suicide Social History Living Situation: Patient resides alone currently in [place], [place]. Lost her emt driver license and car recently and doesn't feel safe alone in the house. Significant Relationships (family/friends): Has a 7 y/o daughter who is in custody of her parents. Has parents and a sister. Has a good relationship with daughter's father. Education: HS graduate and has BSc from [employer] in theater. Vocation/Occupation: Worked waitressing and other jobs. Currently unemployed, wants to get job to feel productive. Legal: DCF involved. Tried to kidnapp daughter over [place] and move to [place]. Parents have full custody with pt having visiting rights. Other Social History: Was living in public assistance housing in [place] for the past 4 years but just moved to [place] with her 7-year-old daughter after the conclusion of a "custody turk" with child's father who apparently still retains some visitation rights (?as part of a joint custody with patient as the penitentiary parent). Healthly Behaviors Screening Tobacco Screening Tobacco Use from ED Docu: Never used - If tobacco counseling indicated - the following topics are required. - #1 Recognizing dangerous situations. - #2 Coping Skills. - #3 Basic information about quitting. Status of Tobacco Cessation Counseling: N/A B/C NO TOB USE Cessation Med Status: No Tobacco Use last 30d Alcohol Screening - ETOH screen POS if BAL >=80 or Audit-C>= M4/F3 Audit-C Score from Diag Assess: 0 Blood Alcohol Level: Laboratory Tests 08/15 1333 Toxicology Serum Alcohol (<10 MG/DL) < 10.0 Alcohol Use Screening Results: Neg per Audit C &/or BAL - If ETOH counseling indicated - the following topics are required. - #1 Express concern about the patient's - drinking at unhealthy levels, include informing - of national norms for moderate drinking: - men <= 14 drinks/week, max 4 drinks/occasion - women <= 7 drinks/week, max 3 drinks/occasion - #2 Providing feedback, including linking alcohol to - negative physical effects (liver injury, hypertension) - negative emotional effects (relationship problems and - depression) - negative occupational consequences (reduced work - performance) - #3 Advising the patient to abstain from alcohol or - to drink below national norms for moderate drinking - (as listed above). Status of ETOH Use Counseling: N/A B/C NO ETOH Use Metabolic Screening - Screen if on a Neuroleptic Medication - Metabolic screening should include: - Blood Pressure, BMI, Glucose or Hgb A1c, & a - Lipid profile from within the past 365 days. Metabolic Screening () Not Applicable, patient not on a neuroleptic. OR ([x]) Patient on a neuroleptic(s) . Enter below results for Glucose or Hemoglobin A1C, and lipid panel if obtained during the last 365 days. BMI: 18.400 Blood Pressure: 105/62 Laboratory Results (If applicable): Lab Cholesterol 174 MG/DL 08/15/16 1333 Cholesterol/HDL Ratio 2 % 08/15/16 1333 Glucose 98 mg/dL 08/15/16 1333 HDL Cholesterol 81 mg/dL H 08/15/16 1333 Hemoglobin A1c 5.5 08/15/16 1302 LDL Cholesterol, Calc 84 mg/dL 08/15/16 1333 Triglycerides 47 mg/dL 08/15/16 1333 Exam and Plan Mental Status Examination Ambulation Status: independently with steady gait Appearance: thin, appearing stated age with long and frizzy hair. Attitude towards examiner: tearful but cooperative Psychomotor activity: agitated Behavior: Thought Process: Disorganized, Flight of Ideas, Irrational Quality of speech: pressured Affect: labile Mood: "low" Suicidal Ideation: "I just want to kill myself" Homicidal Ideation: denies Hallucinations: Command auditory hallucinations of her parents telling her she's "worthless". Visual hallucinations unspecified. Paranoid/Delusional Material: Denies, however difficult to assess today due to patient's histrionic behavior. Difficulties with thought organization: moderate to severe. Insight: fair Judgment: poor Orientation: A&Ox3 Cognition: average but impaired by her current mental status. Memory Function: wnl Estimate of intellectual functioning: average Assets/Strengths Patient Identified Assets/Strengths: "I don't have any". Unable to identify any. Impression/Plan Impression and Plan: 41 y/o woman w/ severe anxiety sx, decompensated to a labile, disorganized, psychotic and suicidal state. Needs inpatient admission at this time. Continue olanzapine 5mg tid and clonazepam 1mg bid; and Hydroxyzine 50mg q6hr PRN, and lithium 300mg AM, 600PM. - Include all active medical diagnosis that require tx DSM 5 Diagnosis(es): Major Depressive Disorder recurrent; severe with anxiety/agitation, psychotic symptoms. Post Traumatic Stress Disorder; Panic OCD; MOY; - Initial Tx Plan for Active Psych & Medical Conditions Treatment Plan: Control anxiety symptoms and suicide ideation. The patient will be monitored on the unit for safety, mood stability, SI, depression and hallucinations. Additional information is needed from collaterals including her family. Pt will be discharged to home and family, and will be referred to IOP. - Factors that would help patient function - in a less restrictive setting. Factors: Resolutions of SI Additional information as needed from collaterals including her family. - Factors that would help patient function - in a less restrictive setting. Factors: Resolutions of SI
[2016-08-18 12:14] VITALS: BP 100/62
--- NOTE | 2016-08-18 15:00 | NUR ---
PT IS OUT IN COMMUNITY INTERACTING AT TIMES WITH STAFF. PT WILL HOVER NEAR THE NURSES STATION AND HAVING TO BE REDIRECTED AWAY. PT WILL SIT ON GROUND OR CRAWL IN A BALL. PT REPEATS THAT SHE NEEDS TO TALK TO SOMEONE AND WHEN SHE IS DONE SHE WILL COME BACK TO DESK AND SAY SHE NEEDS TO TALK TO SOMEONE. PT HAS A HIGH PITCH, WHINY VOICE. PT WAS PLACED ON 1:1 DUE TO COMMENTS SAYING "I FEEL LIKE I'M GOING TO ."
--- NOTE | 2016-08-18 15:39 | SOCIAL WORKER TX PLAN PSYCH ---
Treatment Plan - Please Document: - Evidence that there is ongoing collaboration between - the patient and the interdisciplinary team, - including the patient's active participation and - responsibility for engaging in the treatment regimen, - and that the treatment plan is individualized and - relevant to the patient's conditions. - Treatment plan should reflect documentation indicating - that all active therapeutic efforts are included. Strengths/Capabilities: Trying to care for her daughter/functional when stable on medications. In treatment Physical Limitations (Interventions): None Patient Identified Trmt Goals: " I need housing, I am not safe alone." Discharge Plan: IOP Problem/Goals #1 Problem #1: suicidal ideation Goal (Short Term): Today I will attend 2 groups Today I will identify 2 stressors Today I will identify 2 positive supports Today I will work on recognizing 3 emotions I am feeling Goal (Detention): Be able to cope with routine life stressors and take things in stride plays in coping with daily stresses during the time between therapy sessions Interventions: Learn ways to manage depressive symptoms accordingly and identify positive supports to manage life stressors and mood fluctuations. Modalities: Encourage groups, education on depression, provide CBT treatment, family meeting. DSM5/PS Stressors/Medical Prob Diagnosis' (DSM 5, Stressors, Medical): Anxiety with Panic (F41.0) PTSD chronic (F43.10) can't maintain independent living functioning Current GAF: 25 Treatment Team - Responsibilities of members of the treatment team include: - Medication Management- MD or DATA REDUCTION TECHNICIAN - Medication Administration and Monitoring- Nurse - Group Therapy- Occupational Therapist - 1:1 Therapy,Disch Planning,family involvement-Vice President Of Engineering
--- NOTE | 2016-08-18 15:44 | SOCIAL WORKER PROG NOTE PSYCH ---
Social Work Progress Note Progress Note Patient was overwhelmed and anxious most of the day today making it difficult to meet with her. When we met patient expressed her concern for discharge and housing. Patient reports a desire to go to a fdc when she leaves. Patient asked for me to speak to her mom, Venecia, which I did. Venecia reports that she has a list of group homes that patient is interested in going to and also reported that patients outpatient psychologist has started completing referral for [facility] ([facility] form) for services in [facility]. Patient was on and off crying, shaking and lying on the floor for most of the day today. Patient needs constant redirection from staff and is now on 1 to 1. Patients mother is coming in tomorrow at 1pm tomorrow for family meeting.
[2016-08-18 16:03] VITALS: BP 105/62
--- NOTE | 2016-08-18 18:04 | History & Physical ---
General Information and HPI MD Statement: I have seen and personally examined SHIN LIRIANO and documented this H&P. The patient is a 41 year old F who presented with a patient stated chief complaint of "I can't be independent" . Source of Information: patient, family Exam Limitations: clinical condition History of Present Illness: 41-year-old white female was brought in by ambulance for anxiety attacks "on P EER by their report is department after the patient was pulled over for erratic driving and was noted by the officer to be extremely emotional complaining of "panic attacks". She arrived agitated to the hospital restless crying and yelling "I don't want to take it ". She has history of severe anxiety and disabling panic attacks. Patient states that I cannot be independent and need a halfway" Allergies/Medications Allergies: Coded Allergies: No Known Allergies (10/21/15) Home Med list Clonazepam (Klonopin) 0.5 MG TABLET 1 TAB PO BID ANXIETY (Reported) Olanzapine 5 MG TABLET 1 TAB PO BID MENTAL HEALTH (Reported) Compliance With Home Meds: UNKNOWN Past History Travel History Traveled to [place] past 21 day No Medical History Neurological: NONE EENT: NONE Cardiovascular: NONE Respiratory: NONE Gastrointestinal: NONE Hepatic: NONE Renal: NONE Musculoskeletal: NONE Psychiatric: anxiety, depression, PARANOID OCD R/O benzodiazepine use disorder Endocrine: NONE Blood Disorders: NONE Cancer(s): NONE HAT BLOCKER/Reproductive: NONE History of MRSA: No History of VRE: No History of CDIFF: No Isolation History: Standard Surgical History Surgical History: non-contributory Past Family/Social History Psychosocial History Where do you live? Home Review of Systems Review of Systems Constitutional: Reports: see HPI. Exam & Diagnostic Data Last 24 Hrs of Vital Signs/I&O Vital Signs Date Time Temp Pulse Resp B/P Pulse O2 O2 Flow FiO2 Ox Delivery Rate 08/18 1603 97 105/62 08/18 1214 94 100/62 08/18 0753 97.2 99 104/56 08/17 1944 97.2 89 105/67 Intake & Output 08/18 1600 08/18 0800 08/18 0000 Intake Total Output Total Balance Patient 111 lb Weight Physical Exam General Appearance Alert, Oriented X3, very anxious, and teary at times Skin No Rashes, No Breakdown HEENT Atraumatic, PERRLA, EOMI, Mucous Membr. moist/pink Neck Supple, No JVD, No thryomegaly, +2 Carotid Pulse wo Bruit, No LAD Lymphatic Axillary nl, Cervical nl Cardiovascular Regular Rate Lungs Clear to Auscultation, Normal Air Movement Abdomen Normal Bowel Sounds, Soft, No Tenderness, No Hepatospenomegaly, No Masses Neurological Exam Findings: Cranial Nerves 3-12 NL Cranial Nerves II through XII: Cranial nerves intact Extremities No Cyanosis, No Edema, Normal Pulses Last 24 Hrs of Labs/Garrett: Hemoglobin A1c 5.5, BMP lipid profile liver function tests within normal limits, TSH 1.330. H CG negative with hemoglobin 11.9 with benzodiazepine urine toxicology screen more than 800 Assessment/Plan As Ranked By This Provider Problem List: 1. Generalized anxiety disorder 2. Panic disorder 3. Major depression Miscellaneous Miscellaneous Documentation Attending Case Discussed With: ZAYRA GORDON,NASIR Primary Care Physician: PATIENT HAS NO PRIMARY CARE DR Patient sees these Specialists Psychiatry Level of Patient Care: [facility] Consults Needed: Consulting Specialty: Psychiatry Consulting Physician: Nasir Reed MD Reason for Consult: panic attacks anxiety.
[2016-08-18 19:46] VITALS: BP 102/60
--- NOTE | 2016-08-18 22:18 | NUR ---
PT IS LABILE AND TEARFUL. VISIBLE WITHIN THE MILIEU THE PT TENDS TO STAY NEAR THE NURSES STATION AND TRY TO ENGAGE FREQUENTLY. PT OFTEN WHINES AND TRIES TO GET ATTENTION FROM OTHERS. PT IS OFTEN INAPPROPRIATE AND REQUIRES REDIRECTION FOR THINGS SUCH LAYING ON THE FLOOR NEAR THE NURSES STATION AND BEING LOUD AND INTRUSIVE. VS ARE STABLE AND PT DENIES ANY SI/HI TO THIS MHW.
[2016-08-19 07:57] VITALS: BP 114/52
--- NOTE | 2016-08-19 11:57 | NUR ---
PT PRESENTS GUARDED, TANGENTIAL, RUMINATIVE, ANXIOUS AND DIFFICULT AT TIMES TO REDIRECT PT GETS STUCK AND FRUSTRATED WHEN STAFF ATTEMPTS TO DE-ESCALATE AND CALM, MEDICATION COMPLIANT, MOOD IS LABILE AND AFFECT IS CONSTRICTED, NOT ABLE TO TOLERATE GROUPS.
[2016-08-19 13:27] VITALS: BP 65/58
--- NOTE | 2016-08-19 15:30 | SOCIAL WORKER PROG NOTE PSYCH ---
Social Work Progress Note Progress Note Patient continues to present with severe anxiety today but is showing some improvement in her behaviors compared to yesterday. Patient pacing around the unit, crying at times and perseverating on discharge plans. Patients parents came in for a family meeting today with myself and Toby Pettit APRN. Patients parents provided information on group homes that they would like their daughter to reside in once discharged from the [facility]. I explained to patients parents that we can look into group homes while patient is in the hospital but it is not guaranteed that patient will be able to secure a fpc placement directly from the hospital. Patients parents were not pleased to hear this and are concerned about patient returning back to her apartment home. I discussed with them the option of possibly looking into [facility] and a communications superintendent to be with her. I will reach out to local services tomorrow to see different options. Patient is also interested in case management services at [facility] and originally had intake scheduled for tomorrow which needs to be rescheduled. Patient expressed interest in continuing treatment with her outpatient psychologist out of [place] once discharged from the hosptial and is concerned about transportation to and from her office due to recently losing her license. I informed patient that I will look into transportation options such as [employer].
--- NOTE | 2016-08-19 16:02 | CP SOUTH PROGRESS NOTE PSYCH ---
Psych (Inpt) Progress Note Progress Note Progress Note: I discussed this patient's progress to date, current mental status, treatment process in the context of the treatment plan, and discharge planning with staff/ team in the daily morning inpatient team meeting. I also met with the patient myself in individual session. A total of 50 minutes was spent with the patient with more than 50% spent in counseling and/or coordination of care. OBJECTIVE: Current Medications Sig/Rosalba Start time Last Medication Dose Route Stop Time Status Admin Acetaminophen 650 MG Q6P PRN 08/17 1245 AC PO Al Hydroxide/Mg 30 ML Q4-6 PRN PRN 08/17 1245 AC Hydroxide PO Clonazepam 1 MG .STK-MED ONE 08/19 0735 DC PO 08/19 0736 Clonazepam 1 MG .STK-MED ONE 08/18 2125 DC PO 08/18 2126 Clonazepam 1 MG BID 08/160 DC 08/19 PO 08/23 2159 0740 Diphenhydramine HCl 50 MG ONCE ONE 08/18 1600 DC 08/18 PO 08/18 1601 1603 Gabapentin 300 MG Q6P PRN 08/17 1245 AC 08/18 PO 1151 Hydroxyzine HCl 50 MG Q6P PRN 08/18 1245 AC 08/19 PO 1352 [place] Carbonate 600 MG 2000 08/18 2200 AC 08/18 PO 2131 [place] Carbonate 300 MG 0800 08/18 1630 AC 08/19 PO 0739 Lorazepam 1 MG Q2 HRS NEEDED PRN 08/19 1000 AC 08/19 PO 1220 Lorazepam 1 MG ONCE ONE 08/18 1600 DC 08/18 PO 08/18 1601 1603 Magnesium Hydroxide 30 ML AT BEDTIME PRN 08/17 1245 AC PO Olanzapine 15 MG AT BEDTIME 08/20 2199 UNVr PO Olanzapine 10 MG AT BEDTIME 08/19 220 UNVr PO 08/19 220 Olanzapine 5 MG 0800,1300,0 08/18 1300 DC 08/19 PO 1221 Vital Signs Date Time Temp Pulse Resp B/P Pulse O2 O2 Flow FiO2 Ox Delivery Rate 08/19 1327 77 65/58 08/19 0757 97.0 84 114/52 08/18 1946 96.6 89 102/60 08/18 1603 97 105/62 ASSESSMENT: I met the patient twice today, once in individual session, and then again in a family meeting with her parents. Today she appeared somewhat improved since yesterday. She continues to perseverate, today on bus schedules. She is less histrionic. She was able to sit for a time in a chair without getting up to move around or lie on the floor. She appears to be responding well, but slowly, to medications. I held a family meeting with her mother and father, and director social welfare Jennifer Wilkerson. Parents were supportive of both the patient, and the treatment plan. We discussed current medications and discharge planning. She reports continuing depression and anxiety. States "My mood is very dark." She reports having suicidal ideation "when people shut the door in my face." She reports hearing auditory hallucinations and racing thoughts telling her that she is "no good", "you should ." Denies homicidal ideation, visual hallucinations, paranoid ideation. Speech is well articulated, at times goal-directed, at times histrionic Reports sleeping well at night. States she has a low appetite, but tries to eat. The patient understands the risks/benefits/side effects of the medication and is agreeable to continue taking them. PLAN: Slow progress. 1:1 sitter continues for patient safety. [place] level on Wednesday morning. Continue with current management as patient is improving. Continue to provide support and encouragement.
[2016-08-19 16:20] VITALS: BP 97/75
[2016-08-19 19:42] VITALS: BP 100/66
--- NOTE | 2016-08-19 21:48 | NUR ---
PT IS ISOLATIVE AND WITHDRAWN, SPENDING MAJORITY OF EVENING IN ROOM, AWAY FROM OTHERS. PT IS LETHARGIC, SLEEPING FOR LONG PERIODS OF TIME. PT HAS MANY COMPLAINTS OVER ANXIETY AND APPEARS TO BE QUITE STRESSED, BECOME LABILE AND CRYING AT TIMES. PT MOOD IS STABLE, AFFECT IS EUTHYMIC, ANXIOUS, COMMUNICATION IS NORMAL, APPETITE IS NORMAL. PT MADE A STATEMENT ABOUT SI DURING 1600 VITALS, BUT DID NOT HAVE A PLAN AND WHEN INQUIRED WHETHER SHE WOULD CARRY IT OUT ON THE UNIT SHE SAID NO. CHARGE NURSE WAS NOTIFIED SUBSEQUENT TO THE EVENT.
--- NOTE | 2016-08-20 05:45 | NUR ---
SLEPT WELL 1:1 MAINTAINED
[2016-08-20 07:38] VITALS: BP 105/64
--- NOTE | 2016-08-20 11:53 | SOCIAL WORKER PROG NOTE PSYCH ---
Social Work Progress Note Progress Note Patient presents significantly less anxious and labile today and more organized with her thoughts. I have verified with [facility] that there are currently no female beds available and there is a waiting list for atleast a few months. Patient does qualify for logisticare and VNS through her insurance. I have secured services with [facility] for VNS 2x day when patient discharges home. Patient is aware of this and is pleased to hear this. Patient has also agreed to attend IOP with when she discharges in addition to attending case management services with [facility]. Cailin has intake with [facility] 08/27/16 @ 2pm. She does report some fear of not being able to manage sitting through IOP but has agreed to start attending groups on the unit and attempt to sit through those groups in order to prepare for IOP.
[2016-08-20 12:04] VITALS: BP 120/44
--- NOTE | 2016-08-20 13:35 | CP SOUTH PROGRESS NOTE PSYCH ---
Psych (Inpt) Progress Note Progress Note Progress Note: I discussed this patient's progress to date, current mental status, treatment process in the context of the treatment plan, and discharge planning with staff/ team in the daily morning inpatient team meeting. I also met with the patient myself in individual session. A total of 25 minutes was spent with the patient with more than 50% spent in counseling and/or coordination of care. SUBJECTIVE: "I don't belong here. I need to be on a farm." OBJECTIVE: Current Medications Sig/Rosalba Start time Last Medication Dose Route Stop Time Status Admin Acetaminophen 650 MG Q6P PRN 08/17 1245 AC PO Al Hydroxide/Mg 30 ML Q4-6 PRN PRN 08/17 1245 AC Hydroxide PO Gabapentin 300 MG Q6P PRN 08/17 1245 AC 08/20 PO 1153 Hydroxyzine HCl 50 MG Q6P PRN 08/18 1245 AC 08/19 PO 1352 [place] Carbonate 600 MG 08/18 2200 AC 08/19 PO 2005 [place] Carbonate 300 MG 08/18 1630 AC 08/20 PO 0749 Lorazepam 1 MG Q2 HRS NEEDED PRN 08/19 1000 AC 08/20 PO 1316 Magnesium Hydroxide 30 ML AT BEDTIME PRN 08/17 1245 AC PO Olanzapine 15 MG AT BEDTIME 08/20 2200 AC PO Olanzapine 10 MG AT BEDTIME 08/19 2200 DC 08/19 PO 08/19 220 220 Olanzapine 5 MG 0800,1300,2200 08/18 1300 DC 08/19 PO 1221 Vital Signs Date Time Temp Pulse Resp B/P Pulse O2 O2 Flow FiO2 Ox Delivery Rate 08/20 1204 86 120/44 08/20 0738 96.6 94 105/64 08/19 1942 96.6 95 100/66 08/19 1620 93 97/75 ASSESSMENT: This morning the patient appeared much improved, she was far calmer, however continues perseverating on housing and bus schedules. This morning she appeared more directable than previously. She was found sitting on the floor in the hallway. This afternoon, after speaking with her mother, she appeared far more agitated. Ativan prn continues to be helpful. One-to-one sitter has been discontinued. Depression:04/27; Anxiety:04/27 (with 10 the worst.) Denies homicidal ideation, auditory hallucinations, visual hallucinations, paranoid ideation. States that suicidal ideation is passive, without a plan. She reported auditory hallucinations yesterday and the day before, however states that she is not having auditory hallucinations today. Speech is well articulated, often perseverative, she speaks in a whining tone of voice. The patient understands the risks/benefits/side effects of the medication and is agreeable to continue taking them. PLAN: Continue with current management as patient is improving. Continue to provide support and encouragement.
--- NOTE | 2016-08-20 13:56 | NUR ---
PT HAS BEEN TEARFUL AND ANXIOUS ALL DAY. PT DIFFICULT TO CALM AND REDIRECT. PT WILL EXPRESS RUMINATING THOUGHTS ABOUT THINGS IN THE FUTURE. PT NOTED TO BE PACING A LOT. PT WILL BECOME AGITATED AT TIMES AND SPEAK/CRY VERY LOUDLY. PT SITTING ON FLOOR AND ROCKING BACK AND FORTH AT TIMES. PT DENIES SI AT THIS TIME. PT IN AND OUT OF ROOM MOST OF DAY- PRESENT ON UNIT AT TIMES. PT IS INTERACTING WITH PEERS AND STAFF. PT ATTENDS SOME GROUPS. VITALS ARE STABLE, APPETITE IS GOOD.
[2016-08-20 15:57] VITALS: BP 104/62
[2016-08-20 20:08] VITALS: BP 97/56
--- NOTE | 2016-08-20 21:23 | NUR ---
PT IS VISIBLE ON UNIT, MOSTLY STAYING TO HERSELF OR INTERACTING WITH STAFF. PT REPORTS HIGH ANXIETY, STATING "I WANT TO SCREAM." PT PROVIDED WITH SUPPORT AND REDIRECTED. MOST OF THE EVENING PT REMAINED IN HER ROOM, RESTING IN BED. NO SI REPORTED. PT HAS A ANXIOUS MOOD AND LABILE AFFECT.
--- NOTE | 2016-08-21 03:32 | NUR ---
PT. SLEPT WELL THIS SHIFT.
[2016-08-21 07:54] VITALS: BP 113/83
--- NOTE | 2016-08-21 09:43 | NUR ---
PT IS HIGHLY ANXIOUS AND CHILDLIKE WITH A HIGH WHINEY VOICE AND COVERING HER EARS CLAIMING NO ONE WILL LISTEN TO HER. SHE IS UNABLE TO BE REDIRECTED AT THIS TIME AND IS RESISTIVE TO TAKING MEDS. WITH MUCH ENC PT DID TAKE ATIVAN 1MG. WILL MONITOR EFFECT
--- NOTE | 2016-08-21 10:38 | SOCIAL WORKER PROG NOTE PSYCH ---
Social Work Progress Note Progress Note Patient continues to show some improvement today. Patient continues to be anxious and perseverating about discharge plans and wanting to know specific details about IOP. Patient is more in control of her behaviors today and is generally more appropriate on the unit. Patient is becoming more redirectable and has agreed to try to attend some groups today. Patient signed 3 day paper this AM reporting that she feels unwanted here and would rather be home. I informed patient that she is not unwanted here and that we are not annoyed by her (as she claims we are) but we want to see her manage her emotions more appropriately and continue to work on coping skills when she is feeling overwhelmed. Patient is aware that I will be looking into pen maker services today that may be useful for when she returns home.
--- NOTE | 2016-08-21 11:12 | CP SOUTH PROGRESS NOTE PSYCH ---
Psych (Inpt) Progress Note Progress Note Progress Note: I discussed this patient's progress to date, current mental status, treatment process in the context of the treatment plan, and discharge planning with staff/ team in the daily morning inpatient team meeting. I also met with the patient myself in individual session. A total of 25 minutes was spent with the patient with more than 50% spent in counseling and/or coordination of care. SUBJECTIVE: "I'm afraid I won't be able to get around without a car. I need to go over the bus schedule." OBJECTIVE: Current Medications Sig/Rosalba Start time Last Medication Dose Route Stop Time Status Admin Acetaminophen 650 MG Q6P PRN 08/17 1245 AC PO Al Hydroxide/Mg 30 ML Q4-6 PRN PRN 08/17 1245 AC Hydroxide PO Gabapentin 300 MG .STK-MED ONE 08/20 1731 DC PO 08/20 1732 Gabapentin 300 MG .STK-MED ONE 08/20 1148 DC PO 08/20 1149 Gabapentin 300 MG Q6P PRN 08/17 1245 AC 08/20 PO 1736 Hydroxyzine HCl 50 MG Q6P PRN 08/18 1245 AC 08/19 PO 1352 [place] Carbonate 600 MG 08/18 2200 AC 08/20 PO 2018 [place] Carbonate 300 MG 0808/18 1630 AC 08/21 PO 0910 Lorazepam 1 MG Q2 HRS NEEDED PRN 08/19 1000 AC 08/21 PO 0909 Magnesium Hydroxide 30 ML AT BEDTIME PRN 08/17 1245 AC PO Olanzapine 15 MG AT BEDTIME 08/21 2200 CAN PO Olanzapine 20 MG AT BEDTIME 08/21 2200 UNVr PO Olanzapine 15 MG AT BEDTIME 08/20 2200 DC 08/20 PO 2132 Laboratory Tests 08/21 0622 Toxicology Radley (0.6 - 1.2 mmol/L) 0.8 Vital Signs Date Time Temp Pulse Resp B/P Pulse O2 O2 Flow FiO2 Ox Delivery Rate 08/21 753 97.1 65 113/83 08/20 2007 97.0 72 97/56 08/20 1557 87 104/62 08/20 1204 86 120/44 ASSESSMENT: Patient appears to be making slow improvement. Although she continues to be extremely anxious, she is mostly able to control herself at this time, appears much calmer today. He continues to perseverate about housing and transportation, amongst other things. We discussed the medications she is taking, the patient understands that lithium and olanzapine are "being given off label for poorly controlled mood lability at this time. Patient verbalizes understanding, and agrees to take these medications. We reviewed the risks, benefits and side effects. Depression:03/28; Anxiety:03/28 (with 10 the worst.) Denies homicidal ideation, visual hallucinations, paranoid ideation. Patient states that she does not know if she is suicidal or she is having auditory hallucinations. States "it sort of like when you have a fever and everything is distorted." Speech is well articulated, goal-directed, at times average in rate, volume and tone, at other times in varying degree of histrionic. The patient understands the risks/benefits/side effects of the medication and is agreeable to continue taking them. PLAN: Radley level therapeutic. Increase Zyprexa to 20 mg at bedtime for continuing disorganized thoughts, histrionic/very anxious behavior, mood lability. Continue with current management as patient is improving. Continue to provide support and encouragement.
--- NOTE | 2016-08-21 11:58 | NUR ---
PT WAS MUCH CALMER AFTER GETTING PRN. SHE WAS ABLE TO IDENTIFY THAT DOING SOMETHING WITH HER HANDS HELPS HER ANXIETY. PT WAS ABLE TO ATTEND GROUP AND BETTER ABLE TO VERBALIZE HER CONCERNS AFTER TAKING MEDS. WHEN HIGHLY ANXIOUS PT WILL MAKE A SUICIDAL STATEMENT BUT LATER AGREED THAT SHE DOES NOT HAVE ANY PLAN OR URGE TO ACT ON HER THOUGHTS
[2016-08-21 12:24] VITALS: BP 96/70
[2016-08-21 15:51] VITALS: BP 109/66
[2016-08-21 19:45] VITALS: BP 91/57
--- NOTE | 2016-08-21 21:41 | NUR ---
PT IS ANXIOUS, COMPLAINING OFTEN WHILE PACING NERVOUSLY AROUND UNIT. PT NEEDS TO BE REDIRECTED AT TIMES TO CALM THIS BEHAVIOR IT TENDS TO UPSET OTHER PTS. PT MOOD IS STABLE, AFFECT IS EUTHYMIC, APPEARS ANXIOUS, LABILE, TEARFUL AT TIMES, COMMUNCIATION IS NORMAL, AND APPETITE IS NORMAL. PT DENIES SI AT THIS TIME.
[2016-08-22 07:42] VITALS: BP 102/61
--- NOTE | 2016-08-22 11:35 | CP SOUTH PROGRESS NOTE PSYCH ---
Psych (Inpt) Progress Note Progress Note Include the following elements, when applicable: Involvement in the active treatment of the patient with behavioral observations of the patient and the patient's response to the treatment. Review of the ongoing treatment process in the context of the treatment plan. Indication of how multi-disciplinary staff members are carrying out the treatment plan. Plans for future interventions and recommendations for revision of the treatment plan. Liaison with other physicians/providers. Progress Note: Stated that she wants to go to a assisted; preoccupied with this. stated that during the day time she feels pretty depressed. Given feedback that she is better able to have a conversation compared to one week ago, she is less labile overall. We discussed coping skills that she can use here running in place, watching the aquarium, exercise; more active coping skills she stated are better for her to improve her anxiety. Preoccupied w/ her family, discharge planning; attempted to refocus her to employ coping skills to improve rumination. Denied thoughts to harm herself, but still saying that she is the lowest she has been. MSE: young woman, thin, poor grooming. Poor eye contact. Psychomotor agitation, standing during eval, pacing, walked out early to run in place. Speech high pitched, loud, childlike at times. No tics or tremors noted. No abnormla invol movements. Mood depressed and affect constricted, at times labile when becoming quickly angry. Thought process perseverative and concrete. Thought content positve depressed mood, hopelessness at times, anxious. Not internally preoccupied. Insight adequate, judgment fair. Risk associated w/ depressive sx, tx resistant sx; panic attacks and panic sx, ambivalence about medication. Manage w/ education, med titration, mileu therapy, groups, family support. A: 41 y/o woman w/ hx severe anxiety sx, personality d/o, decompensated w/ disorganized thinking, severe anxiety and depressive sx. Improved compared to admission however remains perseverative, pacing, psychomotor agitation. Plan: Continue current plan of care. Attempted to educate her regarding active coping skills. Consider increasing olanzapine if disorganization persists. Encouraged her to use PRN meds she is ambivalent about meds, stating that she doesnt need them, attempted to educate her regarding need for mood stability and how medication can help when her other coping skills do not work.
[2016-08-22 12:02] VITALS: BP 100/60
--- NOTE | 2016-08-22 12:58 | NUR ---
Pt is present on the unit and interacts with peers and staff, is anxious and requires staff de-escalation often and reassurance, ruminates over house, no license and whether or not she should live in a correction, redirection provided. Mood is irritable, labile and affect is constricted, attending groups as tolerable.
[2016-08-22 15:39] VITALS: BP 102/62
[2016-08-22 19:15] VITALS: BP 125/59
--- NOTE | 2016-08-22 19:39 | NUR ---
PT IS STABLE THIS EVENING SHIFT AND IS CURRENTLY IN HER ROOM SLEEPING. PT WAS OUT IN THE COMMUNITY EARLIER VISITING WITH HER DAUGHTER AND WAS APPROPRIATE WITH MINIMAL WHINING. EASILY REDIRECTED. VS ARE STABLE AND PT DENIES AND SI/HI.
[2016-08-23 07:43] VITALS: BP 110/52
[2016-08-23 12:18] VITALS: BP 97/65
--- NOTE | 2016-08-23 13:13 | CP SOUTH PROGRESS NOTE PSYCH ---
Psych (Inpt) Progress Note Progress Note Include the following elements, when applicable: Involvement in the active treatment of the patient with behavioral observations of the patient and the patient's response to the treatment. Review of the ongoing treatment process in the context of the treatment plan. Indication of how multi-disciplinary staff members are carrying out the treatment plan. Plans for future interventions and recommendations for revision of the treatment plan. Liaison with other physicians/providers. Progress Note: Stated that she is worried about telling the outpatient people about her family problems, concerned about DCF involvement, wants to return to only outpatient therapist. Attempted to employ some cbt strategies w/ her anxious thoughts, to discuss likelihood of success on her own vs. therapist vs. IOP; she eventually was able to calm down and agreeable to IOP. Stated she is sedated does not appear so, but concerned that she is overly sedated and will be unable to function. We discussed that she has severe anxiety, racing thoughts and overall her body and mind need to slow down; that sleep is restorative and will help her sx improve faster; provided feedback about her not being sedated per staff and myself observation during the day time. MSE: young woman, thin, fair grooming. Calmer today w/ better eye contact. Still stands half way through eval but less overall psychomotor agitation (though in the day room still intrusive, needs frequent reassurance at times). Speech is less loud and less high pitched; regular rate; less pressured overall. No tics or tremors noted. No abnormal invol movements. Mood is anxious and affect constricted.Thought process perseverative but somewhat able to be redirected. No delusions elicited. Thought content positive depressed mood and severe anxiety sx; not suicidal or homicidal. Future oriented, though anxious about logistics of how she will get tx when discharged (transportation for ex). Not internally preoccupied. Insight adequate, judgment fair. Risk associated w/ depressive sx, tx resistant sx; panic attacks and panic sx, ambivalence about medication effectiveness. Manage w/ education, med titration, mileu therapy, groups, family support. Improving as she becomes less panicked and w/ fewer racing thoughts, fewer impulsive thoughts and actions. A: 41 y/o woman w/ hx severe anxiety sx, personality d/o, decompensated w/ disorganized thinking, severe anxiety and depressive sx. Improved compared to admission however remains perseverative, anxious and needs frequent reassurance. Plan: Continue current plan of care. Discussed self reassurance for her rather than seeking out constant reassurance from others as a coping skill.
--- NOTE | 2016-08-23 13:36 | NUR ---
PT IS COMPLIANT AND COOPERATIVE. PT IS A LITTLE FOCUSED ON MEDICATIONS AND WHAT EACH MEDICATION IS FOR/ HOW MUCH IS SHE HAVING. PT WAS AT THE DESK MANY TIMES THIS MORNING TELLING STAFF ABOUT HER ANXIETY AND HOW SHE "CAN'T DO IT". NEEDED REMINDING OF HER COPING SKILLS AND TO TAKE HER MEDICATION. PT IS NOT ATTENDING GROUPS AND CAN NOT SIT THROUGH A WHOLE GROUP. PT DENIES SI THOUGHTS BUT WILL MAKE STATMENTS LIKE "I CAN'T DO IT ANYMORE," BUT LATER WILL SAY IT WAS HER ANXIETY NOT SI STATMENTS. PT DID STATE SHE FEELS TIRED FROM THE MEDICATION AND IS RESTING NOW.
[2016-08-23 15:43] VITALS: BP 90/60
[2016-08-23 19:41] VITALS: BP 108/66
--- NOTE | 2016-08-23 21:09 | NUR ---
PATIENT BEDTIME ZYPREXA GIVEN EARLY DUE TO INCREASING AGITATION, LABILE MOOD; SHE WAS STANDING AT THE NURSING STATION, YELLING "YOU DON'T UNDERSTAND!", TALKING ABOUT HER MOTHER NEEDING TO BE HERE ONE MINUTE, AND THEN SAYING HER MOTHER NEVER HELPS HER THE NEXT; STAFF ATTEMPTED TO REDIRECT HER WITH LIMITED SUCCESS; SHE DID AGREE TO TAKE HER ZYPREXA AND EVENTUALLY CALMED DOWN; SHE WAS NOT RECEPTIVE TO STAFF ATTEMPTS TO EDUCATE HER ON SQUARE BREATHING OR OTHER ANXIETY REDUCING STRATEGIES.
--- NOTE | 2016-08-23 21:28 | NUR ---
PT IS ANXIOUS, EASILY AGITATED, COMPLAINING OFTEN OVER NERVOUSNESS. PT HAS BEEN PACING THE UNIT UPSET, CRYING, LABILE, AND NOT BEING COOPERATIVE WITH STAFF. PT MOOD IS STABLE, AFFECT IS EUTHYMIC TO FULL RANGE - ANXIOUS, LABILE, CRYING OFTEN, COMMUNICATION IS NORMAL, APPETITE IS NORMAL. PT DENIES SI AT THIS TIME.
--- NOTE | 2016-08-24 06:58 | NUR ---
PATIENT WAS UP TO BATHROOM, OTHERWISE SLEPT.
[2016-08-24 07:55] VITALS: BP 127/62
--- NOTE | 2016-08-24 10:43 | SOCIAL WORKER PROG TO GOALS ---
Progress Toward Goals Strengths/Capabilities: Trying to care for her daughter/functional when stable on medications. In treatment Physical Limitations (Interventions): None Patient Identified Trmt Goals: " I need housing, I am not safe alone." Discharge Plan: [facility] Problem/Goals #1 Problem #1: suicidal ideation Goal (Short Term): Today I will attend 2 groups Today I will identify 2 stressors Today I will identify 2 positive supports Today I will work on recognizing 3 emotions I am feeling Goal (Professor Of French): Be able to cope with routine life stressors and take things in stride Assess personal risk traits and resiliency traits and discuss the role each plays in coping with daily stresses during the time between therapy sessions Learn two ways to manage frustration in a positive manner Get 7-8 hours of restful sleep every night Talk out routine stress events during weekly therapy sessions Interventions: Learn ways to manage depressive symptoms accordingly and identify positive supports to manage life stressors and mood fluctuations. Progress: Patient continues to endorse passive SI. Patients anxiety is lessening and she is perseverating less. Patient is planning to return home with plan to attend [facility]. Patient has been attending groups on the unit, preparing herself to sit in IOP groups for enitre time.
--- NOTE | 2016-08-24 13:54 | NUR ---
PT DESCRIBED HER MOOD "LOW" AND HER GOAL WAS TO GO TO GROUPS. PT HAS BEEN LABILE..TEARFUL..ANXIOUS WITH A HIGH LOUD VOICE. SHE IS DIFFICULT TO REDIRECT AND AT ONE POINT WAS OBSERVED CHASING THE DOCTOR DOWN THE HALLWAY TO GET HIS ATTENTION. PT RECEIVED PRN ATIVAN..ATARAX..NEURONTIN WITH ONLY A FAIR EFFECT. SHE THEN RECEIVED THORAZINE 25MG PO PRN WITH A GOOD EFFECT. PPT DENIES SUICIDAL THOUGHTS AT THIS TIME
--- NOTE | 2016-08-24 14:09 | CP SOUTH PROGRESS NOTE PSYCH ---
Psych (Inpt) Progress Note Progress Note Include the following elements, when applicable: Involvement in the active treatment of the patient with behavioral observations of the patient and the patient's response to the treatment. Review of the ongoing treatment process in the context of the treatment plan. Indication of how multi-disciplinary staff members are carrying out the treatment plan. Plans for future interventions and recommendations for revision of the treatment plan. Liaison with other physicians/providers. Progress Note: Medication list reviewed. Case and treatment plan discussed in team meeting. Staff reports that the patient seems worse in the morning. Afraid of addiction to Ativan. [place] level was 0.8 on 08/21/15. Mother has reported that the patient made suicidal comments over the weekend. Patient has been reporting nightmares. Patient seen at 11:21 AM with social work specialist, Jennifer Sherman LCSW. The patient is an ambulatory, thin white female dressed in 2 shirts and in pajama pants. She is highly anxious. She has a high-pitched voice. States that after having her license removed, she does not feel safe leaving the hospital, because her anxiety is really high. Patient is noted to be jiggling her right leg. Feels very anxious. Rates anxiety 8/10 with us in the room but reports it would be 10 /10 without us in the room. Rates depressed mood 10/10. Reports feeling hopeless, helpless, worthless and guilty. Reports suicidal ideation but states it is just passive, without a plan. She gives a safety promise for here. Denies homicidal ideation. Denies auditory and visual hallucinations now. Last had visual hallucinations while in the emergency room, of "like twisted faces." Reports feeling that her mother is out to harm her. Denies magical proctor. Reports she slept like 8 hours. Reports appetite is fine but sometimes she feels she does not want to eat anymore when feeling scared. Energy is really high. Patient is unable to comment on whether she is tolerating current medications. Major risks and benefits of off-label chlorpromazine for anxiety were discussed with the patient. Patient was advised of the risk of irreversible tardive dyskinesia, drop in blood pressure and risk of metabolic syndrome with weight gain, diabetes, hypertension and hyperlipidemia. She was advised to avoid drugs , alcohol and while on this medication. IMPRESSION: Slow progress. Continue present treatment plan. Patient remains very highly anxious. At this point, we will stop Zyprexa and start Thorazine 25 mg b.i.d. standing and 25 mg p.o. q.4 hours p.r.n. anxiety. Patient continues to require inpatient level of care. TSH was normal.
--- NOTE | 2016-08-24 15:42 | SOCIAL WORKER PROG NOTE PSYCH ---
Social Work Progress Note Progress Note Patient presented very anxious this AM, perseverating about discharge plans and being unsure if she is ready for discharge. Patient initially reported this AM that she was having passive suicidal thoughts and was not able to contract for safety outside of the hospital. Later in the day patient stated that she wishes to discharge tomorrow and feels ready to do so and denies SI. Patient tentatively has intake scheduled with [facility] picker from [facility] to home after intake. Patient continues to express concern over losing her license and having to rely on other means for transportation. Patient agrees with plan to go to [facility] at and case management at [facility]. Patient agreed today to start on Thorazine which could help target some of her anxiety. Patient also discussed today concern over her relationship with her parents and feeling abandoned by them. Patient feels as though her parents do not want her in their life and feels like she is not accepted by them. Patients parents expressed concern today stating that patient made suicidal comments to them over the weekend. Patient does not recall making these comments and at present denies SI. Patient wishes to discharge tomorrow and I informed her that we will see how manages her anxiety this evening.
--- NOTE | 2016-08-24 16:11 | IP INCIDENTAL NOTE PSYCH ---
Incidental Note Notation: I called mother, per mother's request. Case reviewed with mother. I reassured mother that patient will not be discharged tomorrow.
[2016-08-24 16:13] VITALS: BP 106/64
[2016-08-24 19:35] VITALS: BP 112/78
--- NOTE | 2016-08-25 04:50 | NUR ---
SLEPT WELL, BUT WAS VERY CONFUSED ABOUT MAKING A CONCRETE DECISION TO TAKE HER ATIVAN AT HS OR NOT. MAJOR CONFLICT FOR HER
[2016-08-25 07:57] VITALS: BP 158/66
[2016-08-25 12:17] VITALS: BP 107/64
--- NOTE | 2016-08-25 14:14 | SOCIAL WORKER PROG NOTE PSYCH ---
Social Work Progress Note Progress Note Patient agreed today to rescind her 3 day paper to leave the hospital. Patient is in agreement with plan to remain in the hospital and continue adjusting her medication in order to manage her anxiety and current symptoms. Patient presented calmer today, more organized and logical. Patient continues to report concern about being without a license post discharge and fear of how she will manage her day to day routines. Patient is perseverating less on this topic today and was more redirectable then usual. Patient was encouraged to attend groups today and was able to do so. She denied any suicidal thoughts today.
--- NOTE | 2016-08-25 14:22 | NUR ---
PT HAD A DIFFICULT MORNING. SHE WAS LABILE..TEARFUL AND USING A LOUD HIGH VOICE. SHE WAS RESISTIVE TO MEDS AND IS FOCUSED ON GETTING SIDE EFFECTS. SHE WAS UNABLE TO TOLERATE GROUPS AND WOULD GO FROM STAFF TO STAFF FOR ASSISTANCE. SHE WAS DIFFICULT TO REDIRECT.AFTER TAKING PRN MEDS WITH MUCH ENCOURAGEMENT PT WAS ABLE TO SETTLE DOWN AND SPEAK WITH STAFF IN A NORMAL TONE OF VOICE AND SHE WAS ABLE TO ATTEND A GROUP FOR THE INTERCEPTOR OPERATOR. SHE DENIED SUICIDAL THOUGHTS TODAY
--- NOTE | 2016-08-25 14:28 | NUR ---
PT CONTINUES TO BE LABILE- CAN BECOME TEARFUL VERY EASILY. PT WILL HAVE OUTBURSTS OF YELLING AND CRYING/SOBBING VERY LOUDLY. PT IS DIFFICULT TO REDIRECT. PT TENDS TO BE UNWILLING TO LISTEN TO STAFF SUGGESTIONS TO LOWER HER ANXIETY/USE COPING SKILLS. PT CAN BE DISTRUPTIVE TO THE COMMUNITY AND GROUPS. PT DENIES SI AT THIS TIME. PT IS PRESENT IN THE COMMUNITY AND INTERACTING WITH PEERS AND STAFF. PT ATTENDS SOME GROUPS- IS FREQUENTLY IN AND OUT, HOWEVER. VITALS ARE STABLE, APPETITE IS GOOD.
--- NOTE | 2016-08-25 15:21 | CP SOUTH PROGRESS NOTE PSYCH ---
Psych (Inpt) Progress Note Progress Note Include the following elements, when applicable: Involvement in the active treatment of the patient with behavioral observations of the patient and the patient's response to the treatment. Review of the ongoing treatment process in the context of the treatment plan. Indication of how multi-disciplinary staff members are carrying out the treatment plan. Plans for future interventions and recommendations for revision of the treatment plan. Liaison with other physicians/providers. Progress Note: Case and treatment plan discussed in team meeting. Staff reports that the patient said there is something wrong with her brain. Patient has rescinded 3 day paper. Patient seen at 1:49 pm. Was in group prior to meeting with me. States "it's going." Her anxiety still flares up at times, but she is remarkably calmer today overall. States she did not want to be here (in the hospital) any longer. She is very anxious about the risk of tardive dyskinesia from Thorazine. Rates anxiety 10/10 because of this. Sad 10/10. Feels hopeless, helpless, worthless and guilty. Reports SI. Denies HI. Denies AH and VH, though reports AH/VH started to occur when alone over the past 4 months. Reports mild, vague PI, "maybe a little bit, people in the hospital, God or something." Reports she slept well last night. Appetite has increased since admission, so she reports cutting back intentionally. Reports energy waxes and wanes, but it's pretty good. Eager for discharge. Wants to be tapered off of Ativan. IMPRESSION: Slow progress. Continue present treatment plan. We will increase standing Thorazine to 50 mg b.i.d., discontinue Atarax, and reduce Ativan to 0.5 mg t.i.d. Continues to require inpatient level of care.
[2016-08-25 15:58] VITALS: BP 108/88
[2016-08-25 20:22] VITALS: BP 117/59
--- NOTE | 2016-08-25 22:42 | NUR ---
PT NEEDY OF REASSURANCE. SHE WAS ENCOURAGED TO USE LEARNED COPING SKILLS TO DEAL C ANXIETY. PT SOCIAL C SELECT PEERS. PT -SI, -HI, -AH, -VH, -PARANOIA.
--- NOTE | 2016-08-26 04:49 | NUR ---
PT HAS SLEPT THRU THE NIGHT.
[2016-08-26 07:36] VITALS: BP 104/62
--- NOTE | 2016-08-26 11:25 | NUR ---
PT IS UNSTABLE AND EXTREMELY LABILE. CONTINUNIG TO BE INTRUSIVE AT THE NURSES STATION AND WHINING LOUDLY WITH LITTLE REDIRECTION WORKING. PT IS ASKED TO STEP AWAY FROM THE NURSES STATION AND SHE RESPONDS "I CAN'T MOVE, I NEED TO TALK TO THE DOCTOR NOW". PT IS EASILY AGITATED WHEN TALKING ON THE PHONE TO HER PARENTS AND WANTS TO SEE HER DAUGHTER. PT IS NOT BEING APPROPRIATE ON THE UNIT AND IS VERY DEPENDENT ON STAFF TO "CALM" HER DOWN. VS ARE STABLE AND PT DENIES ANY SI/HI TO THIS MHW.
[2016-08-26 12:06] VITALS: BP 92/60
[2016-08-26 15:35] VITALS: BP 138/98
--- NOTE | 2016-08-26 16:12 | SOCIAL WORKER PROG NOTE PSYCH ---
Social Work Progress Note Progress Note Patient continues to present as anxious on the unit and today reported passive SI. Patient reports that she does not intend to hurt herself but has thoughts of wishing she was or she could "change her circumstances." Patient needed redirection multiple times today by this commercial underwriter. Patient was perseverating on side effects she feels she may experiencing due to medication change and also wanting to set up another family meeting. Patient is constantly seen/heard on the phone with her parents and at times becomes overly anxious and upset when speaking to them. The team feels that another family meeting may decompensate patient and at this time does not appear to be beneficial to her treatment. Patient is aware that at this time we are not planning another meeting. Patient is aware that at this time we are considering discharge for early next week and want to continue to see improvement before discharging her home. Patient is aware and in agreement with continued hospitalization.
--- NOTE | 2016-08-26 16:48 | CP SOUTH PROGRESS NOTE PSYCH ---
Psych (Inpt) Progress Note Progress Note Include the following elements, when applicable: Involvement in the active treatment of the patient with behavioral observations of the patient and the patient's response to the treatment. Review of the ongoing treatment process in the context of the treatment plan. Indication of how multi-disciplinary staff members are carrying out the treatment plan. Plans for future interventions and recommendations for revision of the treatment plan. Liaison with other physicians/providers. Progress Note: Case discussed in team meeting. Staff reports that the patient demonstrates some tremor. [place] level 0.7. Perseverates. Patient seen at 2:28 pm. Paces. Remains anxious and somatic but less anxious than on 08/24/16. "I'm not feeling that well on this medicine." Complains of difficulty writing. Handwriting appears okay to me. Reports blurry vision, knees buckling, perioral numbness and dizziness. Identifies removal of daughter as a stressors. She is worries about physical symptoms and whether she might have a brain tumor. Reports that urge to cut has returned because of anxiety. Denies recent cutting. Sad 2-09/25. Anxiety ~02/25. Feels hopeless. States she isn't feeling entirely helpless or worthless. Feels guilty somewhat. Does not feel she is connecting to anyone. Doesn't like mother to tell her that she will need to be on medication forever. Doesn't want a visiting nurse. Reports she had SI earlier today but not now. Denies HI. Reports she had AH briefly today. Denies VH. Feels scared. I returned call to mother and discussed case with her. Patient asked (through geriatric social worker) to have Ativan reduced from t.i.d. to b.i.d. IMPRESSION: Slow progress. Continue present treatment plan. We will increase standing Thorazine to 75 mg b.i.d. I believe the Thorazine is helping the patient but that the dose is not yet sufficient. The patient's anxiety is now focused on her medication (which is not unusual per her mother). Ativan has been reduced to 0.5 mg b.i.d. Continues to require inpatient level of care.
[2016-08-26 20:02] VITALS: BP 115/63
--- NOTE | 2016-08-26 21:26 | NUR ---
PT IS ANXIOUS, PACING, DIFFICULT TO CONSOLE, AND EXTREMELY UPSET. PT HAS A TENDENCY TO BE LOUD AND SHOUT AT STAFF. PT IS LABILE, CRYING AT TIMES, CROUCHING ON FLOOR, AND PACING AROUND UNIT RAPIDLY IN AN ANXIOUS MANNER. MOOD IS STABLE AT TIMES, PT BECAME MORE STABLE EVENING PROGRESSED, AFFECT IS EUTHYMIC - ANXIOUS AND LABILE AT TIMES, COMMUNICATION IS PRESSURED AND LOUD, AND APPETITE IS NORMAL. PT DENIES SI AT THIS TIME.
--- NOTE | 2016-08-27 05:30 | NUR ---
PT APPEARED TO SLEEP. 3 DAY LETTER RE SUBMITTED AT 2044 ON 08/26. PT HISTRIONIC AND REQUIRING MUCH REASSURANCE.
[2016-08-27 07:29] VITALS: BP 122/66
--- NOTE | 2016-08-27 10:59 | SOCIAL WORKER PROG NOTE PSYCH ---
Social Work Progress Note Progress Note Social work spoke with pt's Father who is aware that pt had not been cooperative about taking her medication. He informed that pt will not be allowed to see her child if she does not comply with tx. This clinician was then informed by Nurse Irvin that pt did agree to take her medication today. Social work met with pt who appeared much calmer and in behavioral control. She expressed that she is feeling much better and thinks she will be ready to discharge Wednesday to follow- up in [facility]. textile pin worker called pt's father back and informed him of her compliance and progress.
[2016-08-27 12:02] VITALS: BP 105/61
--- NOTE | 2016-08-27 14:21 | NUR ---
PT IS PACING, ANXIOUS ALL SHIFT. PT IS AT THE NURSES STATION YELLING AND NOT LISTENING TO REDIRECTION FROM STAFF. PT IS DIFFICULT TO SOOTHE AND BRING DOWN FROM ANXIETY. PT HAS TO BE REDIRECTED AWAY FROM PHONE SINCE SHE GETS LOUD AND STARTS YELLING AT THE PHONE. PT ALSO NEEDED REDIRECTION AWAY FROM NURSES STATION STAFF WAS TAKING CARE OF ANOTHER PT. DR IVERSON HAD TO COME ONTO UNIT TO TALK TO PT ABOUT BEING ABLE TO CALM HERSELF DOWN AND LISTEN TO STAFF. PT MAKES SI COMMENTS WHEN HER ANXIETY IS HIGH BUT WILL DENY THOUGHTS LATER. PT DOES NOT ATTEND GROUPS
--- NOTE | 2016-08-27 14:49 | CP SOUTH PROGRESS NOTE PSYCH ---
Psych (Inpt) Progress Note Progress Note Include the following elements, when applicable: Involvement in the active treatment of the patient with behavioral observations of the patient and the patient's response to the treatment. Review of the ongoing treatment process in the context of the treatment plan. Indication of how multi-disciplinary staff members are carrying out the treatment plan. Plans for future interventions and recommendations for revision of the treatment plan. Liaison with other physicians/providers. Progress Note: Case and treatment plan discussed in team meeting. Staff reports that the patient has been agitated about Thorazine. Told staff she is not psychotic and therefore should not be on Thorazine. Submitted a three-day paper again and it will on Wednesday. Patient seen with nurse Brandee Paulson this morning. Reports she is anxious about Thorazine. Affect is intense. Speech is pressured. States she does not have psychosis and I agree with her. She initially seemed more measured today but later displayed poorly-controlled behavior with high anxiety. Reported mood at 4/10 with 10 being best. Rated sad mood about 7/10 with 10 being worst. Initially reported anxiety as not being that bad and rated it 5/10. Feels hopeless a little bit. Denies feeling helpless or worthless. Feels guilty a little bit. Denies suicidal and homicidal ideation. Denies auditory and visual hallucinations. Reports feeling maybe paranoid, that people might be out to harm her, but she is vague about this. Describes sleep as restless and very disrupted. Appetite is okay. Describes energy as feeling that she needs to work. This afternoon, the patient continued with somatic preoccupation and became highly agitated. I started propranolol 10 mg t.i.d. for anxiety. Nurse Brandee Paulson and I met with the patient again and discussed her focusing on coping skills, including keeping good boundaries (she tends to monopolize staff), self-soothing and distraction techniques. IMPRESSION: Slow progress. Continue present treatment plan. I believe that Thorazine would help the patient, but I do not believe she is on a sufficient dose, and patient has voiced to me her intent to stop taking Thorazine. Continue lithium and propranolol. Ativan is currently at a low dose, 0.5 mg b.i.d. Patient has a three-day paper in place.
--- NOTE | 2016-08-27 16:57 | IP INCIDENTAL NOTE PSYCH ---
Incidental Note Notation: I spoke with both parents by phone at patient's request. They requested Lexapro , recommended by Dr. Miguel in the past, for OCD. Major risks/benefits of Lexapro were discussed with the patient. Will start Lexapro 10 mg daily. Will stop propranolol.
[2016-08-27 19:27] VITALS: BP 109/57
--- NOTE | 2016-08-27 21:44 | NUR ---
PT IS LABILE, CRYING AT TIMES, DIFFICULT TO CONSOLE WEEL TO RE-DIRECT. PT IS HIGHLY ANXIOUS, BUT THIS HAS PROGRESSIVELY DECREASED THE EVENING CONTINUED. MOOD IS NOT STABLE; AFFECT IS EUTHYMIC TO FULL RANGE; HIGHLY ANXIOUS, LABILE, AND TEARFUL; COMMUNICATION IS HYPERVERBAL, PRESSURED, AND LOUD AT TIMES; APPETITE IS NORMAL. PT SHOUTED OUT SI COMMENT MULTIPLE TIMES AT NURSING STATION- NO PLAN STATED AND NO STATEMENT MADE OF ANY ATTEMPT WOULD OCCUR SUBSEQUENT TO COMMENT BEING MADE- STATEMENTS OCCURRED IN THE PRESENCE OF AND WERE ACKNOWLEDGED BY CHARGE NURSE. PT CALMED SHIFT PROGRESSED.
[2016-08-28 07:50] VITALS: BP 101/60
--- NOTE | 2016-08-28 11:56 | NUR ---
PT IS LABILE IN HER MOOD. AT TIMES SHE IS ABLE TO SPEAK WITH STAFF IN AN APPROPRIATE MANNER AND OTHER TIMES SHE IS CHILDLIKE AND DEMANDING ATTENTION USING A LOUD HIGH VOICE. PT IS WORRIED ABOUT SIDE EFFECTS FROM HER MEDS AND EXPRESSED HER CONCERNS TO THE DOCTOR. SHE IS LOOKING FORWARD TO VISIT FROM HER DAUGHTER TODAY. PT DENIED SUICIDAL THOUGHTS AT THIS TIME
[2016-08-28 12:12] VITALS: BP 102/58
--- NOTE | 2016-08-28 13:42 | SOCIAL WORKER PROG NOTE PSYCH ---
Social Work Progress Note Progress Note Patient presented with some anxiety today but was able to manage it and control her behavior better then previously. Patient reported that at this time she only wishes to take [place] and does not feel the need for other medications. Patient stated that she does not want me to make referral for VNS upon discharge and she feels she can manage taking [place] on her own. Patient reports that she does not want to feel tied down to her house and wants to have freedom to come and go as she pleases without having to worry about VNS. Patient is still in agreement to attend IOP with and is aware that she has intake scheduled for Wednesday at 12:45pm. Patient has logisticare set up for transporation home from her intake and to the following morning IOP groups. Patient today expressed concern about her daughter coming to visit and does not wish for her to come this weekend. Patient seemed somewhat distracted, paranoid and irritable during our meeting. Her anxiety appears to be improving but patient continues to show need for this level of care at this time.
--- NOTE | 2016-08-28 13:53 | CP SOUTH PROGRESS NOTE PSYCH ---
Psych (Inpt) Progress Note Progress Note Include the following elements, when applicable: Involvement in the active treatment of the patient with behavioral observations of the patient and the patient's response to the treatment. Review of the ongoing treatment process in the context of the treatment plan. Indication of how multi-disciplinary staff members are carrying out the treatment plan. Plans for future interventions and recommendations for revision of the treatment plan. Liaison with other physicians/providers. Progress Note: Case and treatment plan discussed in team meeting. Staff reports that the patient has "meltdowns." Refusing Lexapro. Refusing Thorazine. Taking lithium. Seen at 11:28 AM with nurse Gordon. Patient claims she gets bad reactions from Thorazine. She is willing to take only the lithium. Wants to delay her decision on Lexapro until she is in the IOP program. Patient questions the safety of the Ativan taper, which is now completed. Denies suicidal ideation. IMPRESSION: Slow progress. Continue present treatment plan. Patient should be encouraged to take Thorazine and Lexapro. Continue lithium. A lithium level has been ordered for Wednesday.
--- NOTE | 2016-08-28 14:42 | IP INCIDENTAL NOTE PSYCH ---
Incidental Note Notation: Case discussed with parents by phone.
[2016-08-28 15:55] VITALS: BP 107/65
[2016-08-28 19:34] VITALS: BP 114/75
--- NOTE | 2016-08-28 20:17 | NUR ---
PT IS EXTREMELY LABILE, TEARFUL, CRYING OUT FOR "ATTENTION FROM SOMEONE". PT IS CONCERNED THAT HER MEDICATION IS BEING STOPPED AND FEELS THAT SHE IS "DETOXING". PT WAS REASSURED THAT HER MEDICATION WOULD NOT BE ADJUSTED IF NOT SEEN APPROPRIATE BY HER PROVIDER. THIS SEEMED TO HAVE CALMED THE PT DOWN FOR THE TIME BEING. SHE IS EASILY AGITATED AND NOT EASILY REDIRECTED. VS ARE STABLE AND SHE DENIES ANY SI/HI TO THIS MHW.
--- NOTE | 2016-08-29 05:34 | NUR ---
PT UP A FEW TIMES TO TOILET. PT APPEARED TO SLEEP.
[2016-08-29 08:11] VITALS: BP 107/63
--- NOTE | 2016-08-29 11:50 | CP SOUTH PROGRESS NOTE PSYCH ---
Psych (Inpt) Progress Note Progress Note Include the following elements, when applicable: Involvement in the active treatment of the patient with behavioral observations of the patient and the patient's response to the treatment. Review of the ongoing treatment process in the context of the treatment plan. Indication of how multi-disciplinary staff members are carrying out the treatment plan. Plans for future interventions and recommendations for revision of the treatment plan. Liaison with other physicians/providers. Progress Note: Pt very upset today. Initally crying hysterically then calmed on own. Reports that she no longer wants to be on any meds, "I'm more grounded when I'm off meds ; I need to find myself again." Pt felt the she was agitated and restless with thorazine. Denies SI or HI. Denies psychotic sx. Spoke at length about custody situation with her parents and her daughter. Current Medications Sig/Rosalba Start time Last Medication Dose Route Stop Time Status Admin Acetaminophen 650 MG Q6P PRN 08/17 1245 AC PO Al Hydroxide/Mg 30 ML Q4-6 PRN PRN 08/17 1245 AC Hydroxide PO Chlorpromazine 75 MG BID 08/26 2200 DC 08/27 PO 2108 Chlorpromazine 25 MG Q4P PRN 08/24 1200 DC 08/26 PO 1115 Escitalopram Oxalate 10 MG 08/27 1700 DC PO [place] Carbonate 300 MG BID 08/29 2200 UNVr PO [place] Carbonate 600 MG 08/18 2200 DC 08/28 PO 1943 [place] Carbonate 300 MG 08/18 1630 DC 08/28 PO 0818 Lorazepam 0.5 MG BID 08/26 2200 DC 08/28 PO 08/28 1200 0818 Magnesium Hydroxide 30 ML AT BEDTIME PRN 08/17 1245 AC PO Quetiapine Fumarate 25 MG Q8P PRN 08/29 1145 UNVr PO Trazodone HCl 50 MG AT BEDTIME NEED.. 08/29 1145 UNVr PO Vital Signs Date Time Temp Pulse Resp B/P Pulse O2 O2 Flow FiO2 Ox Delivery Rate 08/29 810 97.8 88 107/63 08/28 1934 98.3 87 114/75 08/28 1555 78 107/65 08/28 1212 82 102/58 MSE: Appears much younger than as stated age. Cooperative behavior after calmed, initally screaming, and crying, appropriate eye contact. slightly increased rate of speech and elevated volume and nl prosody. + psychomotor agitation. Mood I don't know....the medications!!! Affect irritable and elevated slightly, constricted, appropriate, ++ labile. Linear and goal directed thought process. Denies SI or HI. Does not appear to be responding to internal stimuli. Denies AVHs, paranoia, or delusions. I/J: limited A/P: Pt with hx of BP disorder though reports ayleen hx of Borderline Personality Disorder with PTSD and unspecified anxiety disorder presented initally quite agitated though able to calm on her own. At this time, she wants to take no meds. Spoke with patient at length and see agreed to reduced dose of lithium, seroquel PRNs as well as trazodone PRN. Given hx of mood reactivity, presentation more in line with Borderline PD, however, given lability, lithium continued. - Decreased lithium to 300mg BID - Discontinued lexapro, pt never took - Discontinued thorazine, pt ?had akesthesia which can occur with thorazine especialy given how BMI and lack of long-standing use of AP in the past - Start seroquel 25mg TID PRN, would prefer standing as show, in very limited data, to be helpful at low dose for Borderline PD - Pt wants to f/u with IOP and private DBT thereafter - Continue other medications as above
--- NOTE | 2016-08-29 11:54 | NUR ---
PT HAS DIFFICULT PERIODS THROUGHTOUT THE SHIFT. SHE IS NEEDY AND ATTENTION SEEKING USING A HIGH LOUD VOICE AND IS DIFFICULT TO REDIRECT. SHE DOES FIND PACING HELPFUL. PT DENIES SUICIDAL THOUGHTS AT THIS TIME. NOTIFIED OF PTS REFUSAL OF MEDS
[2016-08-29 12:34] VITALS: BP 103/65
[2016-08-29 16:21] VITALS: BP 94/53
[2016-08-29 19:39] VITALS: BP 116/56
--- NOTE | 2016-08-29 21:25 | NUR ---
PT IS VISIBLE ON UNIT, SOCIAL WITH PEERS AND STAFF. ATTENDED WRAP UP MEETING AND PARTICIPATED. NO COMPLAINTS OR SI REPORTED. PT IS ANXIOUS AT TIMES AND NEEDS TO BE REDIRECTED WHEN RUMINATING AROUND DESK. PT IS COOPERATIVE AND COMPLIANT. NO COMPLAINTS OR SI REPORTED. PT HAS A ANXIOUS MOOD AND LABILE AFFECT AT TIMES.
--- NOTE | 2016-08-30 05:10 | NUR ---
SLEPT WELL NO ISSUES.
[2016-08-30 07:53] VITALS: BP 108/61
--- NOTE | 2016-08-30 08:56 | CP SOUTH PROGRESS NOTE PSYCH ---
Psych (Inpt) Progress Note Progress Note Include the following elements, when applicable: Involvement in the active treatment of the patient with behavioral observations of the patient and the patient's response to the treatment. Review of the ongoing treatment process in the context of the treatment plan. Indication of how multi-disciplinary staff members are carrying out the treatment plan. Plans for future interventions and recommendations for revision of the treatment plan. Liaison with other physicians/providers. Progress Note: Pt notes that she is feeling OK today. Noted that asked her parents not to bring her child in for the visit but they did anyway. At first she was quite anxious but with time felt it was good to see her child. She is concerned about not having BDZ upon discharge. Denies SI or HI. Looking forward to IOP. Feels that she will regain custody one day. Current Medications Sig/Rosalba Start time Last Medication Dose Route Stop Time Status Admin Acetaminophen 650 MG Q6P PRN 08/17 1245 AC PO Al Hydroxide/Mg 30 ML Q4-6 PRN PRN 08/17 1245 AC Hydroxide PO Chlorpromazine 75 MG BID 08/26 2200 DC 08/27 PO 2108 Chlorpromazine 25 MG Q4P PRN 08/24 1200 DC 08/26 PO 1115 Escitalopram Oxalate 10 MG 08/27 1700 DC PO [place] Carbonate 300 MG BID 08/29 2200 AC 08/30 PO 0755 [place] Carbonate 300 MG ONCE ONE 08/29 1215 DC 08/29 PO 08/29 1216 1234 [place] Carbonate 600 MG 08/18 2200 DC 08/28 PO 1943 [place] Carbonate 300 MG 08/18 1630 DC 08/28 PO 0818 Lorazepam 0.5 MG ONE ONE 08/29 1999 DC 08/29 PO 08/29 2000 194 Magnesium Hydroxide 30 ML AT BEDTIME PRN 08/17 1245 AC PO Quetiapine Fumarate 25 MG Q8P PRN 08/29 1145 AC PO Trazodone HCl 50 MG AT BEDTIME NEED.. 08/29 1145 AC PO Vital Signs Date Time Temp Pulse Resp B/P Pulse O2 O2 Flow FiO2 Ox Delivery Rate 08/30 0753 96.9 72 108/61 MSE: Appears much younger than as stated age. Cooperative behavior, no screaming and crying today though very labile, appropriate eye contact. slightly increased rate of speech and elevated volume and nl prosody. + psychomotor agitation. Mood labile. Linear and goal directed thought process. Denies SI or HI. Does not appear to be responding to internal stimuli. Denies AVHs, paranoia, or delusions. I/J: limited A/P: Pt with hx of BP disorder though reports ayleen hx of Borderline Personality Disorder with PTSD and unspecified anxiety disorder presented. Once again, she wants to take no meds. Spoke with patient at length and see agreed to reduced dose of lithium, seroquel PRNs as well as trazodone PRN. Given hx of mood reactivity, presentation more in line with Borderline PD, however, given lability, lithium continued. - Continue lithium at reduced dose of 300mg BID, pt refused to take at all one day ago - Start seroquel 25mg TID PRN, would prefer standing as show, in very limited data, to be helpful at low dose for Borderline PD - Pt wants to f/u with IOP and private DBT thereafter - Continue other medications as above
[2016-08-30 11:59] VITALS: BP 98/65
--- NOTE | 2016-08-30 15:03 | NUR ---
PT IS COMPLIANT AND COOPERATIVE. MOOD IS SLIGHTLY LABILE WITH A CONSTRICTED AFFECT. PT HAS HAD A FEW TEARFUL OUTBURSTS TODAY- WAS ABLE TO BE REDIRECTED. PT APPEARS ANXIOUS- PACING AROUND UNIT, TRYING TO KEEP HANDS BUSY. PT IS PRESENT IN THE COMMUNITY AND INTERACTING WELL WITH PEERS AND STAFF. PT IS ATTENDING GROUPS. VITALS ARE STABLE, APPETITE IS GOOD.
--- NOTE | 2016-08-30 15:36 | NUR ---
Pt is A&O X 3, present in the community appears almost approriate with little or no behavioral issues.Pt keeps verbalizing of her readiness to be discahrged home citing her 3-day-paper and bordom here in the unit. Vital sign is stable, mood and affect are appropriate/ stable no much of lability noted today, Pt denies thought of self-harm and to some else.
[2016-08-30 16:11] VITALS: BP 105/54
[2016-08-30 19:46] VITALS: BP 107/68
--- NOTE | 2016-08-30 20:13 | NUR ---
PT IS COOPERATIVE WITH STAFF AND PEERS, AND COMPLIANT WITH UNIT RULES. PT IS SLIGHTLY ANXIOUS, COMPLAINING AT TIMES OF NERVOUSNESS TO BOTH STAFF AND PEERS, BUT IS EASILY CALMED THROUGH CONVERSATION. PT MOOD IS STABLE, AFFECT IS EUTHYMIC TO FULL RANGE - SLIGHTLY ANXIOUS, COMMUNICATION IS NORMAL, AND APPETITE IS NORMAL. PT DENIES SI AT THIS TIME.
--- NOTE | 2016-08-31 06:43 | NUR ---
PATIENT SLEPT ALL NIGHT.
[2016-08-31 07:37] VITALS: BP 112/68
--- NOTE | 2016-08-31 10:32 | SOCIAL WORKER PROG NOTE PSYCH ---
Social Work Progress Note Progress Note Patient to discharge the hospital today. Patient reports feeling ready for discharge today and appears much less anxious, paranoid and depressed. Patient denies any thoughts of SI/HI today and denies AH/VH. Patient has agreed to follow up with [facility] and has intake scheduled today at 12:45pm. Patient is refusing [facility] at present but was provided with information for [facility] information if she decides to have their services. Patient plans to follow up with [facility] Case Management in order to assist with seeking employment & financial assistance. She has intake appointment on 09/03/16 @ 2pm with [facility]. Patient is able to contract for safety at this time and will discharge home to her residence in [place], [place] today.
--- NOTE | 2016-08-31 10:51 | CP SOUTH PROGRESS NOTE PSYCH ---
Psych (Inpt) Progress Note Progress Note Progress Note: I discussed this patient's progress to date, current mental status, treatment process in the context of the treatment plan, and discharge planning with staff/ team in the daily morning inpatient team meeting. I also met with the patient myself in individual session. A total of greater than 30 minutes was spent with the patient with more than 50% spent in counseling and/or coordination of care. SUBJECTIVE: "I'm scared. I don't get along with my parents. I don't know how I fit in." OBJECTIVE: Current Medications Sig/Rosalba Start time Last Medication Dose Route Stop Time Status Admin Acetaminophen 650 MG Q6P PRN 08/17 1245 AC PO Al Hydroxide/Mg 30 ML Q4-6 PRN PRN 08/17 1245 AC Hydroxide PO [place] Carbonate 300 MG BID 08/29 2200 AC 08/31 PO 0820 Magnesium Hydroxide 30 ML AT BEDTIME PRN 08/17 1245 AC PO Quetiapine Fumarate 25 MG Q8P PRN 08/29 1145 AC 08/30 PO 2157 Trazodone HCl 50 MG AT BEDTIME NEED.. 08/29 1145 AC PO Laboratory Tests 08/31 0715 Toxicology [place] (0.6 - 1.2 mmol/L) 0.4 L Vital Signs Date Time Temp Pulse Resp B/P Pulse O2 O2 Flow FiO2 Ox Delivery Rate 08/31 0737 97.8 74 112/68 08/30 1946 98.0 79 107/68 08/30 1611 84 105/54 08/30 1159 74 98/65 ASSESSMENT: I met with the patient twice today, once in individual session, and then again in a family meeting with her mother and father. This morning when I met with her individually, she presented as calm and cooperative. Although she exhibited intermittent exacerbations of anxiety, she demonstrated the ability to control her behavior and her emotions. This afternoon when I met with her and her parents, she exhibited increased anxiety and lack of control. Patient states that her goal with medication is to taper off the lithium. Although she says the Seroquel has been helpful for anxiety, she hopes to soon discontinue this also. I offered my recommendation that the patient is in need of medications, and should not consider discontinuing any medications without medical advice. Patient agreed, and stated that she would continue to take lithium and Seroquel as directed, and discuss her medications with her [facility] medical provider. She reports continuing depression and anxiety, along with mood lability. Although she appears much improved from her initial presentation, she continues to have frequent exacerbations of anxiety. She does however exhibit the ability to control herself, when she chooses to. Denies suicidal ideation, homicidal ideation, auditory hallucinations, visual hallucinations, paranoid ideation. She reports sleeping well at night, states her appetite is good. Speech is usually well articulated, goal-directed, average in rate, volume and tone. She continues to have what appear to be histrionic episodes, which she appears to be able to control. She is very concerned about "being able to fit in" at [facility], and is afraid that people will "yell" at her. The patient understands the risks/benefits/side effects of the medication and is agreeable to continue taking them. PLAN: Patient states she feels safe and ready for discharge. Discharge today. IOP intake at 1245. Continue with current management as patient is improving. Continue to provide support and encouragement.
--- NOTE | 2016-08-31 10:57 | NUR ---
Discharge Assessment Patient to be discharged to [facility] with f/u at [facility]. Patients mood improved, less anxiety yet continues to worry about her future. patient identified ways to cope with anxiety; she has friends to lean on, DBT skills, EFT. Patient denies SI at present. Future oriented.
--- NOTE | 2016-08-31 11:17 | DISCHARGE SUMMARY REPORT-PSYCH ---
Visit Information Visit Dates/Diagnosis' Admission Date: 08/17/16 Discharge Date: 08/31/16 Reason for Admission: Suicidal ideation with command auditory hallucinations, hystrionic, disorganized thinking, labile moods. Patient was brought to the emergency department by police when she was found to be driving erratically. Psy Discharge Primary Diag: Major Depressive d/o, recurrent, severe with anxiety /agitation, psychotic symptoms. Psy Discharge Secondary Diag: PTSD; MOY; Panic d/o. Hospital Course Significant Lab Findings: Lab TSH 1.330 uIU/mL 08/13/16 1659 [place] 0.4 mmol/L L 08/31/16 0715 U Benzodiazepines Scrn > 800 NG/ML H 08/15/16 1400 Course Complications: None. Consultations: Patient was seen for admission history and physical by Dr. Mtaos. Please refer to his note for additional information. Allergies: Coded Allergies: No Known Allergies (10/21/15) Hospital Course/TX Response: The patient was monitored on the unit for safety, histrionic behavior, panic attacks anxiety, and auditory hallucinations. She participated in multimodal treatments on the unit. The patient was reticent, but agreed to take medications. She stated that she preferred "natural" remedies. She was medicated with lithium for mood stability. On admission she was also medicated with olanzapine for disorganized thoughts and command auditory hallucinations. The patient was later switched to Thorazine, and Lexapro was added. The patient then objected to both these medications, but agreed to take low doses of quetiapine. Family meetings were held with her parents, who are also legal guardians of the patient's 7-year-old daughter. Today, the day of discharge, I met with the patient twice, once in individual session, and then again in a family meeting with her mother and father. This morning when I met with her individually, she presented as calm and cooperative. Although she exhibited intermittent exacerbations of anxiety, she demonstrated the ability to control her behavior and her emotions. This afternoon when I met with her and her parents, she exhibited increased anxiety and lack of control. Patient states that her goal with medication is to taper off of the lithium. Patient is aware that her lithium level is subtherapeutic, and is unwilling to accept a higher dose at this time. Although she says the Seroquel has been helpful for anxiety, she hopes to soon discontinue this also. I offered my recommendation that the patient is in need of medications, and should not consider discontinuing any medications without medical advice. Patient agreed, and stated that she would continue to take lithium and Seroquel as directed, and discuss her medications with her [facility] medical provider. She reports continuing depression and anxiety, along with mood lability. Although she appears much improved from her initial presentation, she continues to have frequent exacerbations of anxiety. She does however exhibit the ability to control herself, when she chooses to. Denies suicidal ideation, homicidal ideation, auditory hallucinations, visual hallucinations, paranoid ideation. Patient states, and also believes that she will not kill herself. She is forward thinking, hoping to get a job, and eventually regain custody of her daughter. She reports sleeping well at night, states her appetite is good. Speech is usually well articulated, goal-directed, average in rate, volume and tone. She continues to have what appear to be histrionic episodes, which she appears to be able to control. She is very concerned about "being able to fit in" at [facility], and is afraid that people will "yell" at her. The patient understands the risks/benefits/side effects of the medication and is agreeable to continue taking them. Patient reports tolerating her medications well, without complaint. States she feels safe and ready for discharge. Discharge HBIPS - Tobacco Use Treatment Offered Post DC Medications Offered: NA-No Tob Use >30 days Post DC Tobacco Treatment Plan: NA-No Tobacco use >30days - EtOH/Drug Use D/O Treatment Offered Post DC Medications Offered: NA-No EtOH/Drug Use D/O Post DC EtOH/SubAbuse [place] Plan: NA-No EtOH/Drug Use D/O Metabolic Screening - Screen if on a Neuroleptic Medication - Metabolic screening should include: - Blood Pressure, BMI, Glucose or Hgb A1c, & a - Lipid profile from within the past 365 days. Metabolic Screening () Not Applicable, patient not on a neuroleptic. OR ([x]) Patient on a neuroleptic(s) . Enter below results for Glucose or Hemoglobin A1C, and lipid panel if obtained during the last 365 days. BMI: 18.400 Blood Pressure: 136/72 Laboratory Results (If applicable): Lab Cholesterol 174 MG/DL 08/15/16 1333 Cholesterol/HDL Ratio 2 % 08/15/16 1333 Glucose 98 mg/dL 08/15/16 1333 HDL Cholesterol 81 mg/dL H 08/15/16 1333 Hemoglobin A1c 5.5 08/15/16 1302 LDL Cholesterol, Calc 84 mg/dL 08/15/16 1333 Triglycerides 47 mg/dL 08/15/16 1333 Discharge Instructions General Discharge Information Discharge Medications: Discharge Medications- (Dose, route, freq, indication): HOME MEDICATION LIST START taking these NEW Home Medications: Quetiapine Fumarate Dose: ORAL, EVERY 8 HOURS Qty: 42 Transmit to (Quetiapine 25 Milligram NEEDED as needed for Refills: 0 Pharm 1 Fumarate) 25 MG ANXIETY TABLET [place] Carbonate Dose: ORAL, TWICE DAILY for Qty: 28 Transmit to ([place] Carbonate) 300 Milligram MOOD STABILITY Refills: 0 Pharm 1 300 MG CAPSULE STOP taking these DISCONTINUED Home Medications: Clonazepam (Klonopin) 0.5 MG Dose: ORAL, TWICE DAILY for ANXIETY TABLET 1 Tablet Reason Stopped: Changed to different med Olanzapine (Olanzapine) 5 MG Dose: ORAL, TWICE DAILY for MENTAL TABLET 1 Tablet HEALTH Reason Stopped: Changed to different med 1: [facility] [id number] [place], [place] [id number] [facility] [id number] [address] [place], [place] [id number] Multiple Neuroleptics: (x) Not Applicable OR Document below three failed attempts at monotherapy, or a plan to taper to monotherapy, or augmentation of Clozapine. () Patient's Diet: Regular Patient's Activity: No restrictions DC Disposition: Patient is returning home, where she lives on her own. She recieves Disability and financial help from her parents. Recommendations: Follow-up at [facility]. Follow up at [facility] for case management. Take medications as directed. Referred To: Post Discharge Referrals Provider Referral Service Date: 08/31/16 Referred To: [[facility]] Notes: [address] [place] [address]. [place], [place] Intake appointment today, 08/31/2016 at 12:45pm Provider Referral Service Date: 09/03/16 Referred To: [[facility] Case Management] Notes: 09/03/2016 at 2pm. Copies To: Care; Intensive Outpt Psychiatry
[2016-08-31] MEDS ORDERED: LITHIUM CARBON300 M4 PO (11:54)
[2016-08-31] MEDS ORDERED: QUETIAPINE FUMA25 M1 PO (11:54)
[2016-08-31 12:07] VITALS: BP 136/72
== END 2016-08-31 12:47 | DRG 885 ==
LOC: ENRESERVTM → ENRESERVDT → ERH 12:31 → ERHI 08-17 14:10 → ENPENDDIS 08-17 14:10 → CP SOUTH 08-17 14:10
PROVIDERS: Emergency Medicine; ADMIT Psychiatry & Neurology Psychiatry
DX: F33.3 Major depressive disorder, recurrent, severe with psychotic symptoms (principal); F41.0 Panic disorder [episodic paroxysmal anxiety]; F43.10 Post-traumatic stress disorder, unspecified; F41.1 Generalized anxiety disorder
CPT/HCPCS: 36415; 80307; 93005; 93010; G0463; G0480; J3230